=== PATIENT | male | born 1950 | race Caucasian/White ===

== ENCOUNTER 2017-04-16 22:27 | Emergency (ER) | payer MEDICARE, OTHER ==
[2017-04-16] MEDS: LORAZEPAM 2 MG INJ IM (23:12)
== END 2017-04-17 00:04 | disposition home or self-care (01) ==
LOC: E/R 04-17 00:04
DX: M79.605 Pain in left leg (principal); M79.604 Pain in right leg; F41.9 Anxiety disorder, unspecified; I10 Essential (primary) hypertension; I25.10 Atherosclerotic heart disease of native coronary artery without angina pectoris; J44.9 Chronic obstructive pulmonary disease, unspecified; Z95.1 Presence of aortocoronary bypass graft
CPT/HCPCS: 96372; 99284-25

== ENCOUNTER 2017-05-09 02:21 | Inpatient (IN) | payer MEDICARE, OTHER ==
[2017-05-09] MEDS: CEFEPIME 2GM/50 ML (PMX) 50 ML IVPB (02:47)
[2017-05-09 03:20] LABS: ABNORMAL IP MESSAGE 1; HEMATOCRIT 30.7 % (42.0-52.0); HEMOGLOBIN 10.7 g/dl (14.0-18.0); MEAN CORPUSCULAR HEMOGLOBIN 39.9 pg (29.0-33.0); MEAN CORPUSCULAR HGB CONC 34.9 g/dl (32.0-37.0); MEAN CORPUSCULAR VOLUME 114.6 fl (82.0-101.0); MEAN PLATELET VOLUME 11.6 fl (7.4-10.4); PLATELET COUNT 573 10^3/UL (140-415); POSITIVE DIFF @See below; RED BLOOD COUNT 2.68 10^6/ul (4.70-6.10); RED CELL DISTRIBUTION WIDTH 17.4 % (11.5-14.5)
[2017-05-09 03:20] LABS: WHITE BLOOD COUNT 4.7 10^3/ul (4.8-10.8)
[2017-05-09] MEDS: SODIUM CHLORIDE 0.9% 1L BAG IV* (03:26)
[2017-05-09] MEDS: ONDANSETRON 4 MG INJ IV (03:26)
[2017-05-09] MEDS: morphine 4 MG/ML VIAL IV (03:26)
[2017-05-09 03:35] LABS: ADD MAN DIFF? YES
[2017-05-09 03:38] LABS: INR 1.12; PROTIME 14.6 Sec (11.9-14.9); PT RATIO 1.1
[2017-05-09 03:39] LABS: PARTIAL THROMBOPLASTIN TIME 44.2 Sec (25.0-35.0)
[2017-05-09 03:39] LABS: LACTIC ACID 0.8 mmol/L (0.5-2.0)
[2017-05-09 03:42] LABS: ALANINE AMINOTRANSFERASE 41 IU/L (13-69); ALBUMIN/GLOBULIN RATIO 1.42; ALKALINE PHOSPHATASE 118 IU/L (42-121); ANION GAP 16 (8-16); ASPARTATE AMINO TRANSFERASE 28 IU/L (15-46); BILIRUBIN,INDIRECT 0.4 mg/dl (0-1.1); BILIRUBIN,TOTAL 0.4 mg/dl (0.2-1.3); BLOOD UREA NITROGEN 28 mg/dl (7-20); CALCIUM 8.8 mg/dl (8.4-10.2); CARBON DIOXIDE 22 mmol/L (21-31); CHLORIDE 104 mmol/L (97-110); CREATININE 1.38 mg/dl (0.61-1.24); GLUCOSE 122 mg/dl (70-220); SODIUM 137 mmol/L (135-144); TOTAL PROTEIN 6.8 g/dl (6.1-8.1)
[2017-05-09 03:53] LABS: TROPONIN-I < 0.012 ng/ml (0.00-0.12)
[2017-05-09 05:17] LABS: ANISOCYTOSIS 2+ (0-0); BAND NEUTROPHILS % (M) 2 % (0-4); BASOPHIL #M 0.1 10^3/ul (0.0-0.0); BASOPHILS % (M) 3 % (0-2); EOSINOPHILS % (M) 4 % (0-7); LYMPHOCYTES #M 0.1 10^3/ul (0.8-2.9); LYMPHOCYTES % (M) 4 % (15-51); MONOCYTES % (M) 2 % (0-11); PLATELET ESTIMATE NORMAL; POIKILOCYTOSIS 3+ (0-0); POLYCHROMASIA 3+ (0-0); SEG NEUT #M 3.9 10^3/ul (1.6-7.5); SEGMENTED NEUTROPHILS (M) % 84 % (39-77); SMUDGE%M 4 % (0-0)
[2017-05-09 05:36] LABS: ADD UMIC YES; UR ASCORBIC ACID NEGATIVE (NEGATIVE); UR BACTERIA FEW /HPF (NONE SEEN); UR BILIRUBIN (Dip) NEGATIVE (NEGATIVE); UR BLOOD (Dip) 2+ mg/dL (NEGATIVE); UR CLARITY CLOUDY (CLEAR); UR COLOR YELLOW (YELLOW); UR GLUCOSE (Dip) NEGATIVE (NEGATIVE); UR KETONES (Dip) NEGATIVE (NEGATIVE); UR LEUKOCYTE ESTERASE (Dip) 3+ Leu/ul (NEGATIVE); UR NITRITE (Dip) POSITIVE (NEGATIVE); UR RBC 2 /HPF (0-5); UR SPECIFIC GRAVITY (Dip) 1.005 (1.003-1.030); UR TOTAL PROTEIN (Dip) 1+ mg/dl (NEGATIVE); UR UROBILINOGEN (Dip) NEGATIVE (NEGATIVE); UR WBC 147 /HPF (0-5)
[2017-05-09] MEDS: VANCOMYCIN 1 GM (PMX) 250 ML IVPB (05:54)
[2017-05-09] MEDS: PANTOPRAZOLE (EC) 40 MG TAB PO (06:00)
[2017-05-09] MEDS: SOD CHLORIDE 0.9% 1,000 ML IV ×4 (06:03→22:48)
[2017-05-09] MEDS ORDERED: NACL 0.9% 3 ML SYG IV (06:30)
[2017-05-09] MEDS ORDERED: LEVALBUTEROL (NEB) 0.63 MG/3 ML AMP HHN (06:30)
[2017-05-09] MEDS ORDERED: ONDANSETRON 4 MG INJ IV (06:30)
[2017-05-09] MEDS ORDERED: morphine 2 MG INJ IV (06:30)
[2017-05-09 07:11] LABS: LACTIC ACID 0.7 mmol/L (0.5-2.0)
[2017-05-09] MEDS: HYDROCODONE/APAP (10/325) TAB PO (07:30)
[2017-05-09 08:53] LABS: LACTIC ACID 0.5 mmol/L (0.5-2.0)
[2017-05-09] MEDS: DICYCLOMINE 10 MG CAP PO ×4 (09:01→20:22)
[2017-05-09] MEDS: HEPARIN 5,000 UNIT/0.5 ML VIAL SC ×2 (09:02→20:21)
[2017-05-09] MEDS: ALLOPURINOL 100 MG TAB PO ×3 (09:25→20:22)
[2017-05-09] MEDS: METOPROLOL (XL) 25 MG TAB PO ×2 (09:26→20:29)
[2017-05-09] MEDS: HYDROXYUREA 500 MG CAP PO (09:27)
[2017-05-09] MEDS: CEFTRIAXONE 1 GM/50 ML (PMX) 50 ML IVPB ×2 (09:52→20:20)
[2017-05-09 16:13] LABS: URIC ACID 8.2 mg/dl (3.1-7.9)
[2017-05-09 16:13] LABS: LACTATE DEHYDROGENASE 722 IU/L (313-618)
[2017-05-09] MEDS: ACETAMINOPHEN 325 MG TAB PO (16:27)
[2017-05-09] MEDS: TAMSULOSIN (SR) 0.4 MG CAP PO (20:22)
[2017-05-10] MEDS: PANTOPRAZOLE (EC) 40 MG TAB PO (05:44)
[2017-05-10 05:59] LABS: ABNORMAL IP MESSAGE 1; HEMATOCRIT 26.5 % (42.0-52.0); HEMOGLOBIN 8.9 g/dl (14.0-18.0); MEAN CORPUSCULAR HGB CONC 33.6 g/dl (32.0-37.0); MEAN CORPUSCULAR VOLUME 116.2 fl (82.0-101.0); MEAN PLATELET VOLUME 11.8 fl (7.4-10.4); PLATELET COUNT 444 10^3/UL (140-415); POSITIVE DIFF @See below; RED BLOOD COUNT 2.28 10^6/ul (4.70-6.10)
[2017-05-10 05:59] LABS: WHITE BLOOD COUNT 1.7 10^3/ul (4.8-10.8)
[2017-05-10 06:15] LABS: ADD MAN DIFF? YES
[2017-05-10 06:24] LABS: PARTIAL THROMBOPLASTIN TIME 47.3 Sec (25.0-35.0)
[2017-05-10 06:59] LABS: ALANINE AMINOTRANSFERASE 33 IU/L (13-69); ALBUMIN 2.9 g/dl (3.3-4.9); ALKALINE PHOSPHATASE 120 IU/L (42-121); ANION GAP 13 (8-16); ASPARTATE AMINO TRANSFERASE 27 IU/L (15-46); BLOOD UREA NITROGEN 20 mg/dl (7-20); CALCIUM 8.6 mg/dl (8.4-10.2); CARBON DIOXIDE 20 mmol/L (21-31); CHLORIDE 109 mmol/L (97-110); CREATININE 1.22 mg/dl (0.61-1.24); GLUCOSE 98 mg/dl (70-220); MAGNESIUM 1.8 mg/dl (1.7-2.5); PHOSPHORUS 3.5 mg/dl (2.5-4.9); POTASSIUM 4.9 mmol/L (3.5-5.1); SODIUM 137 mmol/L (135-144); TOTAL PROTEIN 5.8 g/dl (6.1-8.1)
[2017-05-10 08:35] LABS: ANISOCYTOSIS 3+ (0-0); BAND NEUTROPHILS % (M) 3 % (0-4); BASOPHILS % (M) 2 % (0-2); EOSINOPHILS % (M) 1 % (0-7); GIANT THROMBO% (M) 28 % (0-0); LYMPHOCYTES #M 0.3 10^3/ul (0.8-2.9); LYMPHOCYTES % (M) 19 % (15-51); MONOCYTES % (M) 2 % (0-11); PLATELET ESTIMATE INCREASED; POIKILOCYTOSIS 1+ (0-0); POLYCHROMASIA 2+ (0-0); REACTIVE LYMPHOCYTES #M 0.1 10^3/ul (0.0-0.0); REACTIVE LYMPHOCYTES% (M) 7 % (0-0); SEG NEUT #M 1.1 10^3/ul (1.6-7.5); SEGMENTED NEUTROPHILS (M) % 66 % (39-77); SMUDGE%M 3 % (0-0)
[2017-05-10] MEDS: SOD CHLORIDE 0.9% 1,000 ML IV ×2 (08:55→12:07)
[2017-05-10 08:56] LABS: 50/50 PTT IMMED 38.8 Sec
[2017-05-10 08:57] LABS: 50/50 PTT 1 HOUR 47.1 Sec
[2017-05-10] MEDS: HEPARIN 5,000 UNIT/0.5 ML VIAL SC (09:28)
[2017-05-10] MEDS: ALLOPURINOL 100 MG TAB PO ×2 (09:32→13:46)
[2017-05-10] MEDS: FOLIC ACID 1 MG TAB PO (09:32)
[2017-05-10] MEDS: CEFTRIAXONE 1 GM/50 ML (PMX) 50 ML IVPB (09:32)
[2017-05-10] MEDS: METOPROLOL (XL) 25 MG TAB PO (09:33)
[2017-05-10] MEDS: DICYCLOMINE 10 MG CAP PO ×3 (09:34→17:58)
[2017-05-12 17:01] LABS: CARDIOLIPIN AB - IGA <11 APL; CARDIOLIPIN AB - IGG <14 GPL; CARDIOLIPIN AB - IGM <12 MPL
== END 2017-05-10 19:43 | disposition home or self-care (01) | DRG 690 ==
LOC: E/R 02:21 → PP2 05:33
DX: N13.6 Pyonephrosis (principal); R13.10 Dysphagia, unspecified; D46.9 Myelodysplastic syndrome, unspecified; D53.9 Nutritional anemia, unspecified; I25.10 Atherosclerotic heart disease of native coronary artery without angina pectoris; Z95.1 Presence of aortocoronary bypass graft; N40.0 Benign prostatic hyperplasia without lower urinary tract symptoms; Z87.442 Personal history of urinary calculi
CPT/HCPCS: 36415; 71045; 74176; 80053; 81001; 83605; 83615; 83735; 84100; 84484; 84560; 85025; 85335; 85610; 85613; 85730; 86147; 87040; 87086; 87400; 93005; 96372; 96374; 96375; 99285-25

== ENCOUNTER 2017-06-24 22:10 | Emergency (ER) | payer MEDICARE, OTHER ==
[2017-06-24] MEDS: KETOROLAC 15 MG INJ IV (23:42)
[2017-06-24] MEDS: ONDANSETRON 4 MG INJ IV (23:42)
[2017-06-24] MEDS: SOD CHLORIDE 0.9% 1,000 ML IV (23:42)
[2017-06-24 23:44] LABS: ADD MAN DIFF? NO
[2017-06-24 23:46] LABS: WHITE BLOOD COUNT 9.7 10^3/ul (4.8-10.8)
[2017-06-24 23:46] LABS: BASOPHIL # 0.1 10^3/ul (0.0-0.1); BASOPHILS % 0.6 % (0.0-2.0); EOSINOPHILS # 0.3 10^3/ul (0.0-0.5); EOSINOPHILS % 3.1 % (0.0-7.0); HEMATOCRIT 38.1 % (42.0-52.0); HEMOGLOBIN 13.1 g/dl (14.0-18.0); LYMPHOCYTES # 1.6 10^3/ul (0.8-2.9); LYMPHOCYTES % 16.6 % (15.0-51.0); MEAN CORPUSCULAR HEMOGLOBIN 38.3 pg (29.0-33.0); MEAN CORPUSCULAR HGB CONC 34.4 g/dl (32.0-37.0); MEAN CORPUSCULAR VOLUME 111.4 fl (82.0-101.0); MEAN PLATELET VOLUME 11.9 fl (7.4-10.4); MONOCYTE # 0.5 10^3/ul (0.3-0.9); MONOCYTES % 4.7 % (0.0-11.0); NEUTROPHIL # 7.2 10^3/ul (1.6-7.5); NEUTROPHILS % 74.5 % (39.0-77.0); PLATELET COUNT 650 10^3/UL (140-415); RED BLOOD COUNT 3.42 10^6/ul (4.70-6.10); RED CELL DISTRIBUTION WIDTH 14.1 % (11.5-14.5)
[2017-06-24 23:53] LABS: ADD UMIC YES; UR ASCORBIC ACID NEGATIVE (NEGATIVE); UR BACTERIA FEW /HPF (NONE SEEN); UR BILIRUBIN (Dip) NEGATIVE (NEGATIVE); UR BLOOD (Dip) 1+ mg/dL (NEGATIVE); UR CLARITY CLEAR (CLEAR); UR COLOR STRAW (YELLOW); UR GLUCOSE (Dip) NEGATIVE (NEGATIVE); UR KETONES (Dip) NEGATIVE (NEGATIVE); UR LEUKOCYTE ESTERASE (Dip) 2+ Leu/ul (NEGATIVE); UR NITRITE (Dip) NEGATIVE (NEGATIVE); UR RBC 3 /HPF (0-5); UR SPECIFIC GRAVITY (Dip) 1.003 (1.003-1.030); UR TOTAL PROTEIN (Dip) NEGATIVE (NEGATIVE); UR UROBILINOGEN (Dip) NEGATIVE (NEGATIVE); UR WBC 12 /HPF (0-5)
[2017-06-25 00:06] LABS: ALBUMIN/GLOBULIN RATIO 1.76; ANION GAP 17 (8-16)
[2017-06-25 00:08] LABS: ALANINE AMINOTRANSFERASE 17 IU/L (13-69); ALBUMIN 4.4 g/dl (3.3-4.9); ALKALINE PHOSPHATASE 57 IU/L (42-121); ASPARTATE AMINO TRANSFERASE 21 IU/L (15-46); BILIRUBIN,INDIRECT 0.1 mg/dl (0-1.1); BILIRUBIN,TOTAL 0.1 mg/dl (0.2-1.3); BLOOD UREA NITROGEN 21 mg/dl (7-20); CALCIUM 8.9 mg/dl (8.4-10.2); CARBON DIOXIDE 25 mmol/L (21-31); CHLORIDE 102 mmol/L (97-110); CREATININE 1.11 mg/dl (0.61-1.24); GLUCOSE 84 mg/dl (70-220); LIPASE 43 U/L (23-300); POTASSIUM 4.5 mmol/L (3.5-5.1); SODIUM 139 mmol/L (135-144); TOTAL PROTEIN 6.9 g/dl (6.1-8.1)
[2017-06-25 00:35] LABS: TROPONIN-I < 0.012 ng/ml (0.00-0.12)
[2017-06-25] MEDS: CEFTRIAXONE 1 GM/50 ML (PMX) 50 ML IVPB (03:18)
== END 2017-06-25 04:45 | disposition home or self-care (01) ==
LOC: E/R 06-25 04:45
DX: N39.0 Urinary tract infection, site not specified (principal); Z95.1 Presence of aortocoronary bypass graft
CPT/HCPCS: 36415; 74019; 80053; 81001; 83690; 84484; 85025; 93005; 96374; 96375; 99285-25

== ENCOUNTER 2017-07-09 14:31 | Emergency (ER) | payer MEDICARE, OTHER ==
[2017-07-09] MEDS: ONDANSETRON 4 MG INJ IV (14:47)
[2017-07-09] MEDS: SOD CHLORIDE 0.9% 1,000 ML IV (14:47)
[2017-07-09 15:31] LABS: ABNORMAL IP MESSAGE 1; HEMOGLOBIN 13.5 g/dl (14.0-18.0); MEAN CORPUSCULAR HEMOGLOBIN 36.2 pg (29.0-33.0); MEAN CORPUSCULAR HGB CONC 32.9 g/dl (32.0-37.0); MEAN CORPUSCULAR VOLUME 109.9 fl (82.0-101.0); MEAN PLATELET VOLUME 11.8 fl (7.4-10.4); PLATELET COUNT 830 10^3/UL (140-415); POSITIVE DIFF @See below; RED BLOOD COUNT 3.73 10^6/ul (4.70-6.10); RED CELL DISTRIBUTION WIDTH 16.7 % (11.5-14.5)
[2017-07-09 15:31] LABS: WHITE BLOOD COUNT 10.7 10^3/ul (4.8-10.8)
[2017-07-09 15:51] LABS: ANION GAP 21 (8-16); BLOOD UREA NITROGEN 20 mg/dl (7-20); CALCIUM 9.4 mg/dl (8.4-10.2); CARBON DIOXIDE 21 mmol/L (21-31); CHLORIDE 107 mmol/L (97-110); CREATININE 1.16 mg/dl (0.61-1.24); GLUCOSE 91 mg/dl (70-220); POTASSIUM 4.4 mmol/L (3.5-5.1); SODIUM 145 mmol/L (135-144)
[2017-07-09 15:56] LABS: ADD MAN DIFF? YES
[2017-07-09 16:10] LABS: ANISOCYTOSIS 2+ (0-0); GIANT THROMBO% (M) 51 % (0-0); LYMPHOCYTES #M 1.6 10^3/ul (0.8-2.9); LYMPHOCYTES % (M) 15 % (15-51); MONOCYTE #M 0.4 10^3/ul (0.3-0.9); MONOCYTES % (M) 4 % (0-11); PLATELET ESTIMATE INCREASED; PLATELET MORPHOLOGY COMMENT @See below; POIKILOCYTOSIS 3+ (0-0); POLYCHROMASIA 1+ (0-0); REACTIVE LYMPHOCYTES #M 0.4 10^3/ul (0.0-0.0); REACTIVE LYMPHOCYTES% (M) 4 % (0-0); SEGMENTED NEUTROPHILS (M) % 77 % (39-77); SMUDGE%M 6 % (0-0)
== END 2017-07-09 16:54 | disposition home or self-care (01) ==
LOC: E/R 14:31
DX: A04.72 Enterocolitis due to Clostridium difficile, not specified as recurrent (principal); R19.7 Diarrhea, unspecified; Z95.1 Presence of aortocoronary bypass graft
CPT/HCPCS: 36415; 80048; 85025; 99284-25

== ENCOUNTER 2017-07-14 15:59 | Emergency (ER) | payer MEDICARE, OTHER ==
[2017-07-14 16:24] LABS: ADD MAN DIFF? NO
[2017-07-14 16:27] LABS: BASOPHIL # 0.1 10^3/ul (0.0-0.1); BASOPHILS % 0.7 % (0.0-2.0); EOSINOPHILS # 0.3 10^3/ul (0.0-0.5); EOSINOPHILS % 3.7 % (0.0-7.0); HEMATOCRIT 38.9 % (42.0-52.0); LYMPHOCYTES # 1.5 10^3/ul (0.8-2.9); LYMPHOCYTES % 20.8 % (15.0-51.0); MEAN CORPUSCULAR HEMOGLOBIN 37.2 pg (29.0-33.0); MEAN CORPUSCULAR HGB CONC 33.4 g/dl (32.0-37.0); MEAN CORPUSCULAR VOLUME 111.5 fl (82.0-101.0); MEAN PLATELET VOLUME 11.3 fl (7.4-10.4); MONOCYTE # 0.4 10^3/ul (0.3-0.9); MONOCYTES % 5.2 % (0.0-11.0); NEUTROPHIL # 4.8 10^3/ul (1.6-7.5); NEUTROPHILS % 68.6 % (39.0-77.0); RED BLOOD COUNT 3.49 10^6/ul (4.70-6.10); RED CELL DISTRIBUTION WIDTH 14.4 % (11.5-14.5)
[2017-07-14 16:27] LABS: WHITE BLOOD COUNT 7.1 10^3/ul (4.8-10.8)
[2017-07-14] MEDS: SOD CHLORIDE 0.9% 1,000 ML IV (16:39)
[2017-07-14 16:45] LABS: ANION GAP 16 (8-16); BLOOD UREA NITROGEN 14 mg/dl (7-20); CALCIUM 8.8 mg/dl (8.4-10.2); CARBON DIOXIDE 25 mmol/L (21-31); CHLORIDE 104 mmol/L (97-110); CREATININE 0.94 mg/dl (0.61-1.24); GLUCOSE 91 mg/dl (70-220); POTASSIUM 4.3 mmol/L (3.5-5.1); SODIUM 141 mmol/L (135-144)
[2017-07-14 17:06] LABS: TROPONIN-I < 0.012 ng/ml (0.00-0.12)
[2017-07-14 17:41] LABS: PLATELET COUNT 951 10^3/UL (140-415)
[2017-07-14 18:34] LABS: URINE BLOOD (Dip) POC 2+ (NEGATIVE); URINE GLUCOSE (Dip) POC Negative (NEGATIVE); URINE KETONES (Dip) POC Negative (NEGATIVE); URINE LEUKOCYTE EST (Dip) POC Trace (NEGATIVE); URINE NITRITE (Dip) POC Negative (NEGATIVE); URINE TOTAL PROTEIN POC Negative (NEGATIVE)
[2017-07-14 18:34] LABS: URINE PH (Dip) POC 5.5 (5.0-8.5)
== END 2017-07-14 19:40 | disposition home or self-care (01) ==
LOC: E/R 15:59
DX: R53.1 Weakness (principal); R40.2252 Coma scale, best verbal response, oriented, at arrival to emergency department; R40.2142 Coma scale, eyes open, spontaneous, at arrival to emergency department; R40.2362 Coma scale, best motor response, obeys commands, at arrival to emergency department; Z95.1 Presence of aortocoronary bypass graft
CPT/HCPCS: 36415; 71045; 80048; 81003; 84484; 85025; 93005; 99285-25

== ENCOUNTER 2017-07-24 23:40 | Emergency (ER) | payer SELFPAY, OTHER, MEDICARE | END 2017-07-25 03:49 | disposition left against medical advice (07) | LOC: E/R 23:40 | DX: Z53.21 Procedure and treatment not carried out due to patient leaving prior to being seen by health care provider (principal) ==

== ENCOUNTER 2017-12-14 11:23 | Inpatient (IN) | payer MEDICARE, OTHER ==
[2017-12-14] MEDS: ONDANSETRON 4 MG INJ IV ×2 (11:35→11:42)
[2017-12-14] MEDS: morphine 4 MG/ML VIAL IV ×2 (11:36→11:42)
[2017-12-14] MEDS: SOD CHLORIDE 0.9% 1,000 ML IV ×2 (11:36→18:46)
[2017-12-14 11:50] LABS: ADD MAN DIFF? NO
[2017-12-14 11:51] LABS: BASOPHILS % 0.6 % (0.0-2.0); EOSINOPHILS # 0.1 10^3/ul (0.0-0.5); EOSINOPHILS % 0.7 % (0.0-7.0); HEMATOCRIT 24.8 % (42.0-52.0); HEMOGLOBIN 8.2 g/dl (14.0-18.0); LYMPHOCYTES # 1.9 10^3/ul (0.8-2.9); LYMPHOCYTES % 27.8 % (15.0-51.0); MEAN CORPUSCULAR HEMOGLOBIN 32.5 pg (29.0-33.0); MEAN CORPUSCULAR HGB CONC 33.1 g/dl (32.0-37.0); MEAN CORPUSCULAR VOLUME 98.4 fl (82.0-101.0); MEAN PLATELET VOLUME 11.2 fl (7.4-10.4); MONOCYTE # 0.5 10^3/ul (0.3-0.9); MONOCYTES % 7.3 % (0.0-11.0); NEUTROPHIL # 4.2 10^3/ul (1.6-7.5); NUCLEATED RED BLOOD CELLS # 0.1 10^3/ul (0.0-0.0); NUCLEATED RED BLOOD CELLS% 0.9 /100WBC (0.0-0.0); PLATELET COUNT 176 10^3/UL (140-415); RED BLOOD COUNT 2.52 10^6/ul (4.70-6.10); RED CELL DISTRIBUTION WIDTH 15.4 % (11.5-14.5)
[2017-12-14 12:13] LABS: ALANINE AMINOTRANSFERASE 43 IU/L (13-69); ALBUMIN 3.6 g/dl (3.3-4.9); ALBUMIN/GLOBULIN RATIO 1.24; ALKALINE PHOSPHATASE 76 IU/L (42-121); ANION GAP 15 (8-16); ASPARTATE AMINO TRANSFERASE 31 IU/L (15-46); BILIRUBIN,INDIRECT 0.4 mg/dl (0-1.1); BILIRUBIN,TOTAL 0.4 mg/dl (0.2-1.3); BLOOD UREA NITROGEN 18 mg/dl (7-20); CALCIUM 9.1 mg/dl (8.4-10.2); CARBON DIOXIDE 27 mmol/L (21-31); CHLORIDE 100 mmol/L (97-110); GLUCOSE 97 mg/dl (70-220); LIPASE 38 U/L (23-300); POTASSIUM 4.8 mmol/L (3.5-5.1); SODIUM 137 mmol/L (135-144); TOTAL PROTEIN 6.5 g/dl (6.1-8.1)
[2017-12-14 13:01] LABS: ADD UMIC NO; UR ASCORBIC ACID NEGATIVE (NEGATIVE); UR BILIRUBIN (Dip) NEGATIVE (NEGATIVE); UR BLOOD (Dip) NEGATIVE (NEGATIVE); UR CLARITY CLEAR (CLEAR); UR COLOR STRAW (YELLOW); UR GLUCOSE (Dip) NEGATIVE (NEGATIVE); UR KETONES (Dip) NEGATIVE (NEGATIVE); UR LEUKOCYTE ESTERASE (Dip) NEGATIVE Leu/ul (NEGATIVE); UR NITRITE (Dip) NEGATIVE (NEGATIVE); UR SPECIFIC GRAVITY (Dip) 1.005 (1.003-1.030); UR TOTAL PROTEIN (Dip) NEGATIVE (NEGATIVE); UR UROBILINOGEN (Dip) NEGATIVE (NEGATIVE)
[2017-12-14] MEDS: IODIXANOL LOCM 100 ML BTL (14:45)
[2017-12-14] MEDS: SOD CHLORIDE 0.9% 100 ML (14:45)
[2017-12-14] MEDS: ENOXAPARIN 80 MG/0.8 ML SYG SC (16:48)
[2017-12-14] MEDS ORDERED: LORAZEPAM 2 MG INJ IV (19:00)
[2017-12-14] MEDS ORDERED: ONDANSETRON 4 MG INJ IV ×2 (19:00)
[2017-12-14] MEDS ORDERED: HYDROCODONE PO (19:00)
[2017-12-14] MEDS ORDERED: NA PHOSPHATE/BIPHOS 133 ML ENEMA PR (19:00)
[2017-12-14] MEDS ORDERED: NITROGLYCERIN (SL) 0.4 MG TAB SL (19:00)
[2017-12-14] MEDS ORDERED: hydrALAzine 20 MG INJ IV (19:00)
[2017-12-14] MEDS ORDERED: ACETAMINOPHEN PO (19:00)
[2017-12-14] MEDS ORDERED: ACETAMINOPHEN 325 MG TAB PO ×2 (19:00)
[2017-12-14] MEDS ORDERED: NACL 0.9% 3 ML SYG IV (19:00)
[2017-12-14] MEDS ORDERED: morphine 2 MG INJ IV (19:00)
[2017-12-14] MEDS ORDERED: ALBUTEROL/IPRATROPIUM (NEB) 3 ML AMP HHN (19:00)
[2017-12-14 19:07] LABS: INR 0.99; PROTIME 13.2 Sec (11.9-14.9)
[2017-12-14 19:27] LABS: FREE T4 (FREE THYROXINE) 0.91 ng/dl (0.78-2.44)
[2017-12-14] MEDS ORDERED: SOD CHLORIDE 0.45% 1,000 ML IV (21:00)
[2017-12-14] MEDS: FAMOTIDINE 20 MG INJ IV (23:42)
[2017-12-14] MEDS: ALLOPURINOL 100 MG TAB PO (23:42)
[2017-12-14] MEDS: METOPROLOL (XL) 25 MG TAB PO (23:42)
[2017-12-14] MEDS: TAMSULOSIN (SR) 0.4 MG CAP PO (23:42)
[2017-12-14] MEDS: DICYCLOMINE 10 MG CAP PO (23:43)
[2017-12-14] MEDS: DEXTROSE 5%-0.45% NACL 1,000 ML IV (23:43)
[2017-12-15] MEDS: ENOXAPARIN 80 MG/0.8 ML SYG SC ×3 (01:26→20:17)
[2017-12-15 07:04] LABS: ADD MAN DIFF? NO
[2017-12-15 07:09] LABS: BASOPHILS % 0.7 % (0.0-2.0); EOSINOPHILS % 0.7 % (0.0-7.0); HEMATOCRIT 23.4 % (42.0-52.0); HEMOGLOBIN 7.5 g/dl (14.0-18.0); LYMPHOCYTES # 1.8 10^3/ul (0.8-2.9); LYMPHOCYTES % 30.7 % (15.0-51.0); MEAN CORPUSCULAR HEMOGLOBIN 32.1 pg (29.0-33.0); MEAN CORPUSCULAR HGB CONC 32.1 g/dl (32.0-37.0); MONOCYTE # 0.4 10^3/ul (0.3-0.9); MONOCYTES % 7.3 % (0.0-11.0); NEUTROPHIL # 3.4 10^3/ul (1.6-7.5); NEUTROPHILS % 56.7 % (39.0-77.0); NUCLEATED RED BLOOD CELLS # 0.1 10^3/ul (0.0-0.0); PLATELET COUNT 159 10^3/UL (140-415); RED BLOOD COUNT 2.34 10^6/ul (4.70-6.10); RED CELL DISTRIBUTION WIDTH 15.5 % (11.5-14.5)
[2017-12-15 07:09] LABS: WHITE BLOOD COUNT 5.9 10^3/ul (4.8-10.8)
[2017-12-15 07:48] LABS: CHOLESTEROL 156 mg/dl (100-200)
[2017-12-15 07:48] LABS: CHOL/HDL RATIO 5.2 RATIO; HDL CHOLESTEROL 30 mg/dl (31-75); LDL CHOLESTEROL,CALCULATED 104 mg/dl; TRIGLYCERIDES 112 mg/dl (0-149)
[2017-12-15 07:52] LABS: ANION GAP 13 (8-16); BLOOD UREA NITROGEN 18 mg/dl (7-20); CALCIUM 8.9 mg/dl (8.4-10.2); CARBON DIOXIDE 29 mmol/L (21-31); CHLORIDE 105 mmol/L (97-110); CREATININE 1.23 mg/dl (0.61-1.24); GLUCOSE 88 mg/dl (70-220); MAGNESIUM 2.2 mg/dl (1.7-2.5); PHOSPHORUS 4.8 mg/dl (2.5-4.9); POTASSIUM 4.8 mmol/L (3.5-5.1); SODIUM 142 mmol/L (135-144)
[2017-12-15] MEDS ORDERED: [UNRECOGNIZED DRUG - REMARK] XX (08:30)
[2017-12-15] MEDS: FAMOTIDINE 20 MG INJ IV ×2 (10:02→20:15)
[2017-12-15] MEDS: METOPROLOL (XL) 25 MG TAB PO ×2 (10:02→20:15)
[2017-12-15] MEDS: ALLOPURINOL 100 MG TAB PO ×3 (10:02→20:15)
[2017-12-15] MEDS: DICYCLOMINE 10 MG CAP PO ×4 (10:02→20:15)
[2017-12-15] MEDS ORDERED: RUXOLITINIB PHOSPHATE 20 MG PO (12:30)
[2017-12-15] MEDS: DEXTROSE 5%-0.45% NACL 1,000 ML IV (13:17)
[2017-12-15] MEDS ORDERED: JAKAFI 20 MG PO ×3 (14:30→16:00)
[2017-12-15] MEDS: TAMSULOSIN (SR) 0.4 MG CAP PO (20:15)
[2017-12-15] MEDS: JAKAFI 20 MG PO (20:16)
[2017-12-15] MEDS: HYDROCODONE/APAP (5/325) TAB PO (22:55)
[2017-12-16] MEDS: DEXTROSE 5%-0.45% NACL 1,000 ML IV (02:10)
[2017-12-16] MEDS: FAMOTIDINE 20 MG INJ IV ×2 (08:04→20:07)
[2017-12-16] MEDS: METOPROLOL (XL) 25 MG TAB PO ×2 (08:06→20:07)
[2017-12-16] MEDS: JAKAFI 20 MG PO ×2 (08:06→20:09)
[2017-12-16] MEDS: DICYCLOMINE 10 MG CAP PO ×4 (08:07→20:06)
[2017-12-16] MEDS: ALLOPURINOL 100 MG TAB PO ×3 (08:07→20:06)
[2017-12-16] MEDS: ENOXAPARIN 80 MG/0.8 ML SYG SC ×2 (08:09→20:09)
[2017-12-16 08:12] LABS: ADD MAN DIFF? NO
[2017-12-16 08:29] LABS: WHITE BLOOD COUNT 5.7 10^3/ul (4.8-10.8)
[2017-12-16 08:29] LABS: BASOPHILS % 0.3 % (0.0-2.0); EOSINOPHILS # 0.1 10^3/ul (0.0-0.5); EOSINOPHILS % 0.9 % (0.0-7.0); HEMATOCRIT 21.4 % (42.0-52.0); LYMPHOCYTES # 1.5 10^3/ul (0.8-2.9); LYMPHOCYTES % 26.8 % (15.0-51.0); MEAN CORPUSCULAR HEMOGLOBIN 32.7 pg (29.0-33.0); MEAN CORPUSCULAR HGB CONC 32.7 g/dl (32.0-37.0); MEAN PLATELET VOLUME 10.1 fl (7.4-10.4); MONOCYTE # 0.4 10^3/ul (0.3-0.9); MONOCYTES % 7.5 % (0.0-11.0); NEUTROPHIL # 3.5 10^3/ul (1.6-7.5); NEUTROPHILS % 60.1 % (39.0-77.0); NUCLEATED RED BLOOD CELLS # 0.1 10^3/ul (0.0-0.0); PLATELET COUNT 147 10^3/UL (140-415); RED BLOOD COUNT 2.14 10^6/ul (4.70-6.10); RED CELL DISTRIBUTION WIDTH 15.5 % (11.5-14.5)
[2017-12-16 08:57] LABS: ANION GAP 13 (8-16); BLOOD UREA NITROGEN 18 mg/dl (7-20); CALCIUM 8.8 mg/dl (8.4-10.2); CARBON DIOXIDE 27 mmol/L (21-31); CHLORIDE 106 mmol/L (97-110); CREATININE 1.33 mg/dl (0.61-1.24); GLUCOSE 88 mg/dl (70-220); POTASSIUM 4.5 mmol/L (3.5-5.1); SODIUM 141 mmol/L (135-144)
[2017-12-16] MEDS: EPOETIN 10000 UNITS/ML VIAL (ONCOLOGY) SC (11:31)
[2017-12-16] MEDS: FOLIC ACID 1 MG TAB PO (12:31)
[2017-12-16 12:59] LABS: FOLATE > 20.0 ng/ml (2.8-20.0)
[2017-12-16 17:06] LABS: IMMEDIATE SPIN CROSSMATCH 1 3
[2017-12-16] MEDS: HYDROCODONE/APAP (5/325) TAB PO (18:32)
[2017-12-16] MEDS: TAMSULOSIN (SR) 0.4 MG CAP PO (20:06)
[2017-12-16] MEDS: SOD CHLORIDE 0.45% 1,000 ML IV (20:39)
[2017-12-17] MEDS: SOD CHLORIDE 0.45% 1,000 ML IV ×2 (01:20→13:25)
[2017-12-17 06:59] LABS: HEMATOCRIT 25.2 % (42.0-52.0); HEMOGLOBIN 8.3 g/dl (14.0-18.0); MEAN CORPUSCULAR HGB CONC 32.9 g/dl (32.0-37.0); MEAN CORPUSCULAR VOLUME 97.3 fl (82.0-101.0); MEAN PLATELET VOLUME 10.8 fl (7.4-10.4); NUCLEATED RED BLOOD CELLS% 1.3 /100WBC (0.0-0.0); PLATELET COUNT 150 10^3/UL (140-415); POSITIVE DIFF @See below; RED BLOOD COUNT 2.59 10^6/ul (4.70-6.10); RED CELL DISTRIBUTION WIDTH 15.5 % (11.5-14.5)
[2017-12-17 06:59] LABS: WHITE BLOOD COUNT 5.6 10^3/ul (4.8-10.8)
[2017-12-17 07:18] LABS: ADD MAN DIFF? YES
[2017-12-17 07:22] LABS: ANION GAP 13 (8-16); BLOOD UREA NITROGEN 17 mg/dl (7-20); CALCIUM 8.7 mg/dl (8.4-10.2); CARBON DIOXIDE 26 mmol/L (21-31); CHLORIDE 107 mmol/L (97-110); CREATININE 1.24 mg/dl (0.61-1.24); GLUCOSE 79 mg/dl (70-220); POTASSIUM 4.1 mmol/L (3.5-5.1); SODIUM 142 mmol/L (135-144)
[2017-12-17] MEDS: JAKAFI 20 MG PO ×2 (08:04→20:18)
[2017-12-17] MEDS: FOLIC ACID 1 MG TAB PO (09:00)
[2017-12-17] MEDS: FAMOTIDINE 20 MG INJ IV ×2 (09:00→20:12)
[2017-12-17] MEDS: ALLOPURINOL 100 MG TAB PO ×3 (09:00→20:11)
[2017-12-17] MEDS: DICYCLOMINE 10 MG CAP PO ×4 (09:00→20:11)
[2017-12-17] MEDS: MAGNESIUM HYDROXIDE 30ML CUP PO (09:01)
[2017-12-17] MEDS: METOPROLOL (XL) 25 MG TAB PO ×2 (09:01→20:12)
[2017-12-17] MEDS: DOCUSATE SODIUM 100 MG CAP PO (09:01)
[2017-12-17] MEDS: ENOXAPARIN 80 MG/0.8 ML SYG SC (09:14)
[2017-12-17 10:30] LABS: ANISOCYTOSIS 1+ (0-0); BAND NEUTROPHILS #M 0.3 10^3/ul (0.0-0.6); BAND NEUTROPHILS % (M) 7 % (0-4); ERYTHROBLAST% (NRBC) (M) 1 % (0-0); GIANT THROMBO% (M) 1 % (0-0); LYMPHOCYTES #M 1.7 10^3/ul (0.8-2.9); LYMPHOCYTES % (M) 31 % (15-51); METAMYELOCYTES %M 1 % (0-0); MICROCYTOSIS 1+ (0-0); MONOCYTE #M 0.2 10^3/ul (0.3-0.9); MONOCYTES % (M) 4 % (0-11); MYELOCYTES % (M) 1 % (0-0); PLATELET ESTIMATE NORMAL; POIKILOCYTOSIS 3+ (0-0); SEG NEUT #M 3.2 10^3/ul (1.6-7.5); SEGMENTED NEUTROPHILS (M) % 56 % (39-77); SMUDGE%M 6 % (0-0)
[2017-12-17 14:06] LABS: OCCULT BLOOD STOOL NEGATIVE (NEGATIVE)
[2017-12-17] MEDS: TAMSULOSIN (SR) 0.4 MG CAP PO (20:11)
[2017-12-17] MEDS: APIXABAN 5 MG TABLET PO (20:11)
[2017-12-18] MEDS: SOD CHLORIDE 0.45% 1,000 ML IV (04:00)
[2017-12-18 05:51] LABS: DRVVT CONFIRMATION NEGATIVE (NEGATIVE); HEXAGONAL PHASE CONFIRMATION NEGATIVE (NEGATIVE)
[2017-12-18 06:13] LABS: ADD MAN DIFF? NO
[2017-12-18 06:28] LABS: ABNORMAL IP MESSAGE 1; BASOPHIL # 0.1 10^3/ul (0.0-0.1); BASOPHILS % 0.8 % (0.0-2.0); EOSINOPHILS # 0.1 10^3/ul (0.0-0.5); HEMATOCRIT 26.4 % (42.0-52.0); HEMOGLOBIN 8.6 g/dl (14.0-18.0); LYMPHOCYTES # 1.5 10^3/ul (0.8-2.9); LYMPHOCYTES % 24.3 % (15.0-51.0); MEAN CORPUSCULAR HEMOGLOBIN 32.1 pg (29.0-33.0); MEAN CORPUSCULAR HGB CONC 32.6 g/dl (32.0-37.0); MEAN CORPUSCULAR VOLUME 98.5 fl (82.0-101.0); MEAN PLATELET VOLUME 10.9 fl (7.4-10.4); MONOCYTE # 0.5 10^3/ul (0.3-0.9); MONOCYTES % 7.3 % (0.0-11.0); NEUTROPHIL # 3.8 10^3/ul (1.6-7.5); NEUTROPHILS % 60.9 % (39.0-77.0); NUCLEATED RED BLOOD CELLS # 0.1 10^3/ul (0.0-0.0); PLATELET COUNT 164 10^3/UL (140-415); POSITIVE DIFF @See below; RED BLOOD COUNT 2.68 10^6/ul (4.70-6.10); RED CELL DISTRIBUTION WIDTH 15.6 % (11.5-14.5)
[2017-12-18 06:28] LABS: WHITE BLOOD COUNT 6.3 10^3/ul (4.8-10.8)
[2017-12-18 06:50] LABS: ANION GAP 12 (8-16); BLOOD UREA NITROGEN 17 mg/dl (7-20); CARBON DIOXIDE 26 mmol/L (21-31); CHLORIDE 108 mmol/L (97-110); CREATININE 1.22 mg/dl (0.61-1.24); GLUCOSE 91 mg/dl (70-220); POTASSIUM 4.4 mmol/L (3.5-5.1); SODIUM 142 mmol/L (135-144)
[2017-12-18] MEDS: APIXABAN 5 MG TABLET PO (08:11)
[2017-12-18] MEDS: ALLOPURINOL 100 MG TAB PO (08:12)
[2017-12-18] MEDS: FOLIC ACID 1 MG TAB PO (08:12)
[2017-12-18] MEDS: DICYCLOMINE 10 MG CAP PO (08:12)
[2017-12-18] MEDS: METOPROLOL (XL) 25 MG TAB PO (08:14)
[2017-12-18] MEDS: JAKAFI 20 MG PO (08:16)
[2017-12-18] MEDS: FAMOTIDINE 20 MG INJ IV (09:20)
[2017-12-18 09:51] LABS: ANISOCYTOSIS 1+ (0-0); BAND NEUTROPHILS #M 0.2 10^3/ul (0.0-0.6); BAND NEUTROPHILS % (M) 4 % (0-4); ELLIPTO 1+ (0-0); EOSINOPHILS % (M) 3 % (0-7); ERYTHROBLAST% (NRBC) (M) 2 % (0-0); LYMPHOCYTES #M 1.6 10^3/ul (0.8-2.9); LYMPHOCYTES % (M) 26 % (15-51); METAMYELOCYTES %M 1 % (0-0); MICROCYTOSIS 1+ (0-0); PLATELET ESTIMATE NORMAL; SEG NEUT #M 4.2 10^3/ul (1.6-7.5); SEGMENTED NEUTROPHILS (M) % 66 % (39-77); SMUDGE%M 13 % (0-0); SPHEROCYTES 1+ (0-0)
[2017-12-18] MEDS ORDERED: EPOETIN 10000 UNITS/ML VIAL (ONCOLOGY) SC (17:00)
[2017-12-18 17:56] LABS: HOMOCYSTEINE - CARDIOVASCULAR 15.1 umol/L (<11.4)
[2017-12-18 23:57] LABS: ERYTHROPOIETIN 97.7 mIU/mL (2.6-18.5)
[2017-12-22] MEDS ORDERED: APIXABAN 5 MG TABLET PO (21:00)
== END 2017-12-18 12:30 | disposition home or self-care (01) | DRG 442 ==
LOC: E/R 11:23 → TEL 18:48
PROC: 30233N1 Transfusion of Nonautologous Red Blood Cells into Peripheral Vein, Percutaneous Approach (ICD-10-PCS; principal; 2017-12-16)
DX: I81 Portal vein thrombosis (principal); K76.6 Portal hypertension; D47.1 Chronic myeloproliferative disease; Z95.1 Presence of aortocoronary bypass graft; I10 Essential (primary) hypertension; D64.9 Anemia, unspecified; R16.1 Splenomegaly, not elsewhere classified; K59.00 Constipation, unspecified
CPT/HCPCS: 36415; 36430; 74176; 74177; 80048; 80053; 80061; 81003; 81240; 82270; 82607; 82668; 82746; 83036; 83090; 83690; 83735; 83890; 84100; 84439; 84443; 85025; 85300; 85302; 85305; 85610; 85613; 85730; 86147; 86850; 86900; 86901; 86920; 96360; 96361; 96372; 97162; 97166; 99285-25; J0885

== ENCOUNTER 2018-06-30 15:32 | Emergency (ER) | payer MEDICARE, OTHER ==
[2018-06-30 16:02] LABS: ABNORMAL IP MESSAGE 1; HEMATOCRIT 37.6 % (42.0-52.0); HEMOGLOBIN 11.6 g/dl (14.0-18.0); MEAN CORPUSCULAR HEMOGLOBIN 29.9 pg (29.0-33.0); MEAN CORPUSCULAR HGB CONC 30.9 g/dl (32.0-37.0); MEAN CORPUSCULAR VOLUME 96.9 fl (82.0-101.0); MEAN PLATELET VOLUME 11.5 fl (7.4-10.4); NUCLEATED RED BLOOD CELLS% 1.7 /100WBC (0.0-0.0); PLATELET COUNT 274 10^3/UL (140-415); POSITIVE DIFF @See below; RED BLOOD COUNT 3.88 10^6/ul (4.70-6.10)
[2018-06-30 16:02] LABS: WHITE BLOOD COUNT 12.1 10^3/ul (4.8-10.8)
[2018-06-30 16:17] LABS: ADD MAN DIFF? YES
[2018-06-30 16:19] LABS: ALANINE AMINOTRANSFERASE 18 IU/L (13-69); ALBUMIN 4.4 g/dl (3.3-4.9); ALBUMIN/GLOBULIN RATIO 1.62; ALKALINE PHOSPHATASE 81 IU/L (42-121); ANION GAP 9 (5-13); ASPARTATE AMINO TRANSFERASE 25 IU/L (15-46); BILIRUBIN,INDIRECT 0.6 mg/dl (0-1.1); BILIRUBIN,TOTAL 0.6 mg/dl (0.2-1.3); BLOOD UREA NITROGEN 13 mg/dl (7-20); CARBON DIOXIDE 26 mmol/L (21-31); CHLORIDE 100 mmol/L (97-110); CREATININE 1.07 mg/dl (0.61-1.24); Estimated GFR > 60 mL/min (>60); GLUCOSE 87 mg/dl (70-220); LIPASE 22 U/L (23-300); POTASSIUM 4.6 mmol/L (3.5-5.1); SODIUM 135 mmol/L (135-144); TOTAL PROTEIN 7.1 g/dl (6.1-8.1)
[2018-06-30 16:31] LABS: TROPONIN-I < 0.012 ng/ml (0.000-0.120)
[2018-06-30] MEDS: SOD CHLORIDE 0.9% 1,000 ML IV (16:35)
[2018-06-30 16:44] LABS: ANISOCYTOSIS 2+ (0-0); BAND NEUTROPHILS #M 0.2 10^3/ul (0.0-0.6); BAND NEUTROPHILS % (M) 2 % (0-4); BASOPHIL #M 0.2 10^3/ul (0.0-0.0); BASOPHILS % (M) 2 % (0-2); EOSINOPHILS % (M) 1 % (0-7); ERYTHROBLAST% (NRBC) (M) 3 % (0-0); LYMPHOCYTES #M 1.3 10^3/ul (0.8-2.9); LYMPHOCYTES % (M) 11 % (15-51); METAMYELOCYTES #M 0.3 10^3/ul (0.0-0.0); METAMYELOCYTES %M 3 % (0-0); MICROCYTOSIS 2+ (0-0); MONOCYTE #M 0.4 10^3/ul (0.3-0.9); MONOCYTES % (M) 4 % (0-11); PLATELET ESTIMATE NORMAL; POIKILOCYTOSIS 3+ (0-0); POLYCHROMASIA 3+ (0-0); SEG NEUT #M 9.3 10^3/ul (1.6-7.5); SEGMENTED NEUTROPHILS (M) % 77 % (39-77); SMUDGE%M 3 % (0-0)
[2018-06-30 18:14] LABS: ADD UMIC YES; UR ASCORBIC ACID NEGATIVE (NEGATIVE); UR BILIRUBIN (Dip) NEGATIVE (NEGATIVE); UR BLOOD (Dip) 1+ mg/dL (NEGATIVE); UR CLARITY CLEAR (CLEAR); UR COLOR YELLOW (YELLOW); UR GLUCOSE (Dip) NEGATIVE (NEGATIVE); UR KETONES (Dip) NEGATIVE (NEGATIVE); UR LEUKOCYTE ESTERASE (Dip) NEGATIVE Leu/ul (NEGATIVE); UR NITRITE (Dip) NEGATIVE (NEGATIVE); UR RBC 2 /HPF (0-5); UR SPECIFIC GRAVITY (Dip) 1.008 (1.003-1.030); UR TOTAL PROTEIN (Dip) NEGATIVE (NEGATIVE); UR UROBILINOGEN (Dip) 1+ mg/dL (NEGATIVE); UR WBC 2 /HPF (0-5)
== END 2018-06-30 19:45 | disposition home or self-care (01) ==
LOC: E/R 15:32
DX: R53.1 Weakness (principal); I25.10 Atherosclerotic heart disease of native coronary artery without angina pectoris; Z79.01 Long term (current) use of anticoagulants; Z95.1 Presence of aortocoronary bypass graft
CPT/HCPCS: 36415; 80053; 81001; 83690; 84484; 85025; 93005; 99284-25

== ENCOUNTER 2018-07-20 21:49 | Emergency (ER) | payer MEDICARE, OTHER ==
[2018-07-20 23:54] LABS: ADD MAN DIFF? NO
[2018-07-20] MEDS: KETOROLAC 15 MG INJ IV (23:56)
[2018-07-20] MEDS: SOD CHLORIDE 0.9% 1,000 ML IV (23:56)
[2018-07-20] MEDS: LIDOCAINE/MYLANTA 40 ML BTL PO (23:57)
[2018-07-20] MEDS: BELLADONNA/PHENOBARBITAL TAB PO (23:57)
[2018-07-20 23:58] LABS: BASOPHIL # 0.2 10^3/ul (0.0-0.1); BASOPHILS % 2.1 % (0.0-2.0); EOSINOPHILS # 0.2 10^3/ul (0.0-0.5); EOSINOPHILS % 1.9 % (0.0-7.0); HEMATOCRIT 36.1 % (42.0-52.0); HEMOGLOBIN 11.3 g/dl (14.0-18.0); LYMPHOCYTES # 1.6 10^3/ul (0.8-2.9); LYMPHOCYTES % 13.7 % (15.0-51.0); MEAN CORPUSCULAR HEMOGLOBIN 29.5 pg (29.0-33.0); MEAN CORPUSCULAR HGB CONC 31.3 g/dl (32.0-37.0); MEAN CORPUSCULAR VOLUME 94.3 fl (82.0-101.0); MEAN PLATELET VOLUME 9.8 fl (7.4-10.4); MONOCYTE # 0.7 10^3/ul (0.3-0.9); MONOCYTES % 6.2 % (0.0-11.0); NEUTROPHIL # 8.1 10^3/ul (1.6-7.5); NEUTROPHILS % 71.5 % (39.0-77.0); NUCLEATED RED BLOOD CELLS% 0.3 /100WBC (0.0-0.0); PLATELET COUNT 266 10^3/UL (140-415); RED BLOOD COUNT 3.83 10^6/ul (4.70-6.10); RED CELL DISTRIBUTION WIDTH 16.7 % (11.5-14.5)
[2018-07-20 23:58] LABS: WHITE BLOOD COUNT 11.3 10^3/ul (4.8-10.8)
[2018-07-21 00:16] LABS: ALANINE AMINOTRANSFERASE 23 IU/L (13-69); ALBUMIN 4.3 g/dl (3.3-4.9); ALBUMIN/GLOBULIN RATIO 1.79; ALKALINE PHOSPHATASE 68 IU/L (42-121); ANION GAP 10 (5-13); ASPARTATE AMINO TRANSFERASE 24 IU/L (15-46); BILIRUBIN,INDIRECT 0.4 mg/dl (0-1.1); BILIRUBIN,TOTAL 0.4 mg/dl (0.2-1.3); BLOOD UREA NITROGEN 14 mg/dl (7-20); CALCIUM 8.9 mg/dl (8.4-10.2); CARBON DIOXIDE 25 mmol/L (21-31); CHLORIDE 101 mmol/L (97-110); CREATININE 1.06 mg/dl (0.61-1.24); Estimated GFR > 60 mL/min (>60); GLUCOSE 97 mg/dl (70-220); LIPASE 33 U/L (23-300); POTASSIUM 4.6 mmol/L (3.5-5.1); SODIUM 136 mmol/L (135-144); TOTAL PROTEIN 6.7 g/dl (6.1-8.1)
== END 2018-07-21 01:58 | disposition home or self-care (01) ==
LOC: E/R 21:49
DX: R10.30 Lower abdominal pain, unspecified (principal); I10 Essential (primary) hypertension; I25.10 Atherosclerotic heart disease of native coronary artery without angina pectoris; G89.4 Chronic pain syndrome; Z95.1 Presence of aortocoronary bypass graft
CPT/HCPCS: 36415; 80053; 83690; 85025; 93005; 96374; 99284-25

== ENCOUNTER 2018-07-29 11:59 | Inpatient (IN) | payer MEDICARE, OTHER ==
[2018-07-29] MEDS: SOD CHLORIDE 0.9% 500 ML IV (13:07)
[2018-07-29 14:00] LABS: ADD MAN DIFF? NO
[2018-07-29 14:04] LABS: ABNORMAL IP MESSAGE 1; BASOPHIL # 0.1 10^3/ul (0.0-0.1); BASOPHILS % 1.2 % (0.0-2.0); EOSINOPHILS # 0.1 10^3/ul (0.0-0.5); EOSINOPHILS % 1.1 % (0.0-7.0); HEMATOCRIT 22.2 % (42.0-52.0); LYMPHOCYTES # 0.7 10^3/ul (0.8-2.9); MEAN CORPUSCULAR HEMOGLOBIN 30.1 pg (29.0-33.0); MEAN CORPUSCULAR HGB CONC 31.1 g/dl (32.0-37.0); MEAN CORPUSCULAR VOLUME 96.9 fl (82.0-101.0); MEAN PLATELET VOLUME 12.6 fl (7.4-10.4); MONOCYTE # 0.5 10^3/ul (0.3-0.9); MONOCYTES % 5.4 % (0.0-11.0); NEUTROPHIL # 7.5 10^3/ul (1.6-7.5); NEUTROPHILS % 81.8 % (39.0-77.0); NUCLEATED RED BLOOD CELLS # 0.1 10^3/ul (0.0-0.0); PLATELET COUNT 174 10^3/UL (140-415); POSITIVE DIFF @See below; RED BLOOD COUNT 2.29 10^6/ul (4.70-6.10); RED CELL DISTRIBUTION WIDTH 16.8 % (11.5-14.5)
[2018-07-29 14:04] LABS: WHITE BLOOD COUNT 9.2 10^3/ul (4.8-10.8)
[2018-07-29 14:12] LABS: HEMOGLOBIN 6.9 g/dl (14.0-18.0); PATH REVIEW? YES
[2018-07-29 14:25] LABS: INR 1.64; PROTIME 19.5 Sec (11.9-14.9); PT RATIO 1.5
[2018-07-29 14:26] LABS: PARTIAL THROMBOPLASTIN TIME 50.5 Sec (23.0-35.0)
[2018-07-29 14:33] LABS: ALANINE AMINOTRANSFERASE 20 IU/L (13-69); ALBUMIN 2.9 g/dl (3.3-4.9); ALBUMIN/GLOBULIN RATIO 1.16; ALKALINE PHOSPHATASE 46 IU/L (42-121); ANION GAP 7 (5-13); ASPARTATE AMINO TRANSFERASE 18 IU/L (15-46); BILIRUBIN,INDIRECT 0.5 mg/dl (0-1.1); BILIRUBIN,TOTAL 0.5 mg/dl (0.2-1.3); BLOOD UREA NITROGEN 8 mg/dl (7-20); CALCIUM 6.6 mg/dl (8.4-10.2); CARBON DIOXIDE 18 mmol/L (21-31); CHLORIDE 111 mmol/L (97-110); CREATININE 0.74 mg/dl (0.61-1.24); Estimated GFR > 60 mL/min (>60); GLUCOSE 77 mg/dl (70-220); POTASSIUM 3.8 mmol/L (3.5-5.1); SODIUM 136 mmol/L (135-144); TOTAL PROTEIN 5.4 g/dl (6.1-8.1)
[2018-07-29 14:34] LABS: LIPASE < 10 U/L (23-300)
[2018-07-29 14:42] LABS: TROPONIN-I < 0.012 ng/ml (0.000-0.120)
[2018-07-29] MEDS ORDERED: ALBUTEROL/IPRATROPIUM (NEB) 3 ML AMP HHN (16:00)
[2018-07-29] MEDS ORDERED: LORAZEPAM 2 MG INJ IV (16:00)
[2018-07-29] MEDS ORDERED: NITROGLYCERIN (SL) 0.4 MG TAB SL (16:00)
[2018-07-29] MEDS ORDERED: ACETAMINOPHEN 325 MG TAB PO (16:00)
[2018-07-29] MEDS ORDERED: ONDANSETRON 4 MG INJ IV (16:00)
[2018-07-29] MEDS ORDERED: DOCUSATE SODIUM 100 MG CAP PO (16:00)
[2018-07-29] MEDS ORDERED: hydrALAzine 20 MG INJ IV (16:00)
[2018-07-29] MEDS ORDERED: NACL 0.9% 3 ML SYG IV (16:00)
[2018-07-29] MEDS ORDERED: MAGNESIUM HYDROXIDE 30ML CUP PO (16:00)
[2018-07-29 16:12] LABS: ADD UMIC YES; UR ASCORBIC ACID NEGATIVE (NEGATIVE); UR BILIRUBIN (Dip) NEGATIVE (NEGATIVE); UR BLOOD (Dip) 1+ mg/dL (NEGATIVE); UR CLARITY CLEAR (CLEAR); UR COLOR STRAW (YELLOW); UR GLUCOSE (Dip) NEGATIVE (NEGATIVE); UR KETONES (Dip) NEGATIVE (NEGATIVE); UR LEUKOCYTE ESTERASE (Dip) NEGATIVE Leu/ul (NEGATIVE); UR NITRITE (Dip) NEGATIVE (NEGATIVE); UR RBC 0 /HPF (0-5); UR SPECIFIC GRAVITY (Dip) 1.002 (1.003-1.030); UR TOTAL PROTEIN (Dip) NEGATIVE (NEGATIVE); UR UROBILINOGEN (Dip) NEGATIVE (NEGATIVE); UR WBC 0 /HPF (0-5)
[2018-07-29 16:16] LABS: FREE T4 (FREE THYROXINE) 0.99 ng/dl (0.78-2.44)
[2018-07-29] MEDS: SOD CHLORIDE 0.45% 1,000 ML IV (17:16)
[2018-07-29 18:57] LABS: HEMATOCRIT 33.8 % (42.0-52.0); HEMOGLOBIN 10.6 g/dl (14.0-18.0)
[2018-07-29] MEDS: TAMSULOSIN (SR) 0.4 MG CAP PO (20:23)
[2018-07-29] MEDS: METOPROLOL 50 MG TAB PO (20:23)
[2018-07-29 22:52] LABS: HEMATOCRIT 31.7 % (42.0-52.0); HEMOGLOBIN 10.1 g/dl (14.0-18.0)
[2018-07-29] MEDS: HYDROCODONE/APAP (5/325) TAB PO (23:34)
[2018-07-30] MEDS: SOD CHLORIDE 0.45% 1,000 ML IV (05:12)
[2018-07-30 06:17] LABS: WHITE BLOOD COUNT 10.7 10^3/ul (4.8-10.8)
[2018-07-30 06:17] LABS: HEMATOCRIT 32.3 % (42.0-52.0); HEMOGLOBIN 10.1 g/dl (14.0-18.0); MEAN CORPUSCULAR HEMOGLOBIN 29.7 pg (29.0-33.0); MEAN CORPUSCULAR HGB CONC 31.3 g/dl (32.0-37.0); MEAN PLATELET VOLUME 11.7 fl (7.4-10.4); PLATELET COUNT 207 10^3/UL (140-415); POSITIVE DIFF @See below; RED CELL DISTRIBUTION WIDTH 16.6 % (11.5-14.5)
[2018-07-30 06:23] LABS: HEMOGLOBIN A1C 5.4 % (0-5.9)
[2018-07-30 06:45] LABS: ANION GAP 10 (5-13); BLOOD UREA NITROGEN 10 mg/dl (7-20); CALCIUM 8.8 mg/dl (8.4-10.2); CARBON DIOXIDE 23 mmol/L (21-31); CHLORIDE 104 mmol/L (97-110); CREATININE 0.93 mg/dl (0.61-1.24); Estimated GFR > 60 mL/min (>60); GLUCOSE 88 mg/dl (70-220); MAGNESIUM 1.7 mg/dl (1.7-2.5); PHOSPHORUS 3.7 mg/dl (2.5-4.9); POTASSIUM 4.1 mmol/L (3.5-5.1); SODIUM 137 mmol/L (135-144)
[2018-07-30 06:47] LABS: CHOL/HDL RATIO 4.9 RATIO; HDL CHOLESTEROL 25 mg/dl (31-75); LDL CHOLESTEROL,CALCULATED 66 mg/dl; TRIGLYCERIDES 162 mg/dl (0-149)
[2018-07-30 06:47] LABS: CHOLESTEROL 123 mg/dl (100-200)
[2018-07-30 07:16] LABS: ADD MAN DIFF? YES
[2018-07-30] MEDS: morphine 2 MG INJ IV (07:36)
[2018-07-30] MEDS: PANTOPRAZOLE (EC) 40 MG TAB PO (08:44)
[2018-07-30] MEDS: METOPROLOL 50 MG TAB PO (08:48)
[2018-07-30 09:48] LABS: ANISOCYTOSIS 3+ (0-0); BAND NEUTROPHILS #M 0.4 10^3/ul (0.0-0.6); BAND NEUTROPHILS % (M) 4 % (0-4); BASOPHIL #M 0.1 10^3/ul (0.0-0.0); BASOPHILS % (M) 1 % (0-2); ELLIPTO 1+ (0-0); EOSINOPHILS % (M) 3 % (0-7); ERYTHROBLAST% (NRBC) (M) 2 % (0-0); GIANT THROMBO% (M) 1 % (0-0); LYMPHOCYTES #M 0.6 10^3/ul (0.8-2.9); LYMPHOCYTES % (M) 6 % (15-51); METAMYELOCYTES #M 0.1 10^3/ul (0.0-0.0); METAMYELOCYTES %M 1 % (0-0); MICROCYTOSIS 3+ (0-0); OVALOCYTES 2+ (0-0); PLATELET ESTIMATE NORMAL; POIKILOCYTOSIS 3+ (0-0); POLYCHROMASIA 2+ (0-0); SEG NEUT #M 9.1 10^3/ul (1.6-7.5); SEGMENTED NEUTROPHILS (M) % 85 % (39-77); SMUDGE%M 2 % (0-0); TEAR DROP CELLS 1+ (0-0)
[2018-07-30] MEDS: HYDROCODONE/APAP (5/325) TAB PO ×2 (10:29→17:24)
== END 2018-07-30 17:54 | disposition home or self-care (01) | DRG 552 ==
LOC: E/R 11:59 → TEL 15:15
DX: M54.5 Low back pain (principal); R53.1 Weakness; G89.29 Other chronic pain; I10 Essential (primary) hypertension; D46.9 Myelodysplastic syndrome, unspecified; I25.10 Atherosclerotic heart disease of native coronary artery without angina pectoris; Z95.1 Presence of aortocoronary bypass graft
CPT/HCPCS: 36415; 74176; 80048; 80053; 80061; 81001; 83036; 83690; 83735; 84100; 84439; 84443; 84484; 85014; 85018; 85025; 85610; 85730; 86850; 86900; 86901; 86920; 87086; 93005; 97161; 99285-25

== ENCOUNTER 2018-08-14 07:27 | Emergency (ER) | payer MEDICARE, OTHER ==
[2018-08-14 08:05] LABS: ADD MAN DIFF? NO
[2018-08-14 08:06] LABS: BASOPHIL # 0.2 10^3/ul (0.0-0.1); BASOPHILS % 2.2 % (0.0-2.0); EOSINOPHILS # 0.2 10^3/ul (0.0-0.5); EOSINOPHILS % 1.8 % (0.0-7.0); HEMOGLOBIN 12.2 g/dl (14.0-18.0); LYMPHOCYTES # 0.8 10^3/ul (0.8-2.9); LYMPHOCYTES % 7.6 % (15.0-51.0); MEAN CORPUSCULAR HEMOGLOBIN 29.8 pg (29.0-33.0); MEAN CORPUSCULAR HGB CONC 31.3 g/dl (32.0-37.0); MEAN CORPUSCULAR VOLUME 95.1 fl (82.0-101.0); MEAN PLATELET VOLUME 11.4 fl (7.4-10.4); MONOCYTE # 0.7 10^3/ul (0.3-0.9); MONOCYTES % 6.4 % (0.0-11.0); NEUTROPHIL # 8.4 10^3/ul (1.6-7.5); NEUTROPHILS % 78.1 % (39.0-77.0); NUCLEATED RED BLOOD CELLS # 0.2 10^3/ul (0.0-0.0); NUCLEATED RED BLOOD CELLS% 1.5 /100WBC (0.0-0.0); PLATELET COUNT 237 10^3/UL (140-415); RED CELL DISTRIBUTION WIDTH 18.5 % (11.5-14.5)
[2018-08-14 08:06] LABS: WHITE BLOOD COUNT 10.7 10^3/ul (4.8-10.8)
[2018-08-14 08:23] LABS: ALANINE AMINOTRANSFERASE 19 IU/L (13-69); ALBUMIN 4.5 g/dl (3.3-4.9); ALBUMIN/GLOBULIN RATIO 1.87; ALKALINE PHOSPHATASE 74 IU/L (42-121); ANION GAP 9 (5-13); ASPARTATE AMINO TRANSFERASE 21 IU/L (15-46); BILIRUBIN,INDIRECT 0.9 mg/dl (0-1.1); BILIRUBIN,TOTAL 0.9 mg/dl (0.2-1.3); BLOOD UREA NITROGEN 8 mg/dl (7-20); CALCIUM 8.9 mg/dl (8.4-10.2); CARBON DIOXIDE 27 mmol/L (21-31); CHLORIDE 97 mmol/L (97-110); CREATININE 0.99 mg/dl (0.61-1.24); Estimated GFR > 60 mL/min (>60); GLUCOSE 91 mg/dl (70-220); POTASSIUM 4.3 mmol/L (3.5-5.1); SODIUM 133 mmol/L (135-144); TOTAL PROTEIN 6.9 g/dl (6.1-8.1)
[2018-08-14 08:34] LABS: TROPONIN-I < 0.012 ng/ml (0.000-0.120)
[2018-08-14 08:36] LABS: PROTIME 14.3 Sec (11.9-14.9); PT RATIO 1.1
[2018-08-14 08:37] LABS: PARTIAL THROMBOPLASTIN TIME 40.6 Sec (23.0-35.0)
[2018-08-14] MEDS: ONDANSETRON 4 MG INJ IV (10:01)
== END 2018-08-14 10:26 | disposition home or self-care (01) ==
LOC: E/R 07:27
DX: D64.9 Anemia, unspecified (principal); Z95.1 Presence of aortocoronary bypass graft
CPT/HCPCS: 36415; 80053; 84484; 85025; 85610; 85730; 86850; 86900; 86901; 93005; 96374; 99284-25

== ENCOUNTER 2018-08-16 04:06 | Emergency (ER) | payer MEDICARE, OTHER ==
[2018-08-16] MEDS: ONDANSETRON 4 MG INJ IV ×2 (05:20→06:27)
[2018-08-16] MEDS: morphine 4 MG/ML VIAL IV (05:20)
[2018-08-16 05:28] LABS: ABNORMAL IP MESSAGE 1; HEMATOCRIT 40.2 % (42.0-52.0); HEMOGLOBIN 12.6 g/dl (14.0-18.0); MEAN CORPUSCULAR HEMOGLOBIN 29.5 pg (29.0-33.0); MEAN CORPUSCULAR HGB CONC 31.3 g/dl (32.0-37.0); MEAN CORPUSCULAR VOLUME 94.1 fl (82.0-101.0); MEAN PLATELET VOLUME 12.4 fl (7.4-10.4); NUCLEATED RED BLOOD CELLS% 1.4 /100WBC (0.0-0.0); PLATELET COUNT 307 10^3/UL (140-415); POSITIVE DIFF @See below; RED BLOOD COUNT 4.27 10^6/ul (4.70-6.10); RED CELL DISTRIBUTION WIDTH 18.2 % (11.5-14.5)
[2018-08-16 05:28] LABS: WHITE BLOOD COUNT 11.7 10^3/ul (4.8-10.8)
[2018-08-16 05:41] LABS: ADD MAN DIFF? YES
[2018-08-16 05:47] LABS: ALANINE AMINOTRANSFERASE 25 IU/L (13-69); ALBUMIN 4.6 g/dl (3.3-4.9); ALBUMIN/GLOBULIN RATIO 1.91; ALKALINE PHOSPHATASE 81 IU/L (42-121); ANION GAP 10 (5-13); ASPARTATE AMINO TRANSFERASE 31 IU/L (15-46); BLOOD UREA NITROGEN 9 mg/dl (7-20); CALCIUM 9.1 mg/dl (8.4-10.2); CARBON DIOXIDE 24 mmol/L (21-31); CHLORIDE 98 mmol/L (97-110); CREATININE 1.06 mg/dl (0.61-1.24); Estimated GFR > 60 mL/min (>60); GLUCOSE 100 mg/dl (70-220); POTASSIUM 4.3 mmol/L (3.5-5.1); SODIUM 132 mmol/L (135-144)
[2018-08-16 05:48] LABS: INR 1.12; PROTIME 14.5 Sec (11.9-14.9); PT RATIO 1.1
[2018-08-16 05:49] LABS: PARTIAL THROMBOPLASTIN TIME 38.4 Sec (23.0-35.0)
[2018-08-16 05:58] LABS: TROPONIN-I < 0.012 ng/ml (0.000-0.120)
[2018-08-16 06:19] LABS: ANISOCYTOSIS 1+ (0-0); BAND NEUTROPHILS #M 1.6 10^3/ul (0.0-0.6); BAND NEUTROPHILS % (M) 14 % (0-4); BASOPHIL #M 0.1 10^3/ul (0.0-0.0); BASOPHILS % (M) 1 % (0-2); EOSINOPHILS % (M) 2 % (0-7); ERYTHROBLAST% (NRBC) (M) 1 % (0-0); GIANT THROMBO% (M) 1 % (0-0); LYMPHOCYTES #M 0.1 10^3/ul (0.8-2.9); LYMPHOCYTES % (M) 1 % (15-51); METAMYELOCYTES #M 0.1 10^3/ul (0.0-0.0); METAMYELOCYTES %M 1 % (0-0); MICROCYTOSIS 1+ (0-0); MONOCYTE #M 0.2 10^3/ul (0.3-0.9); MONOCYTES % (M) 2 % (0-11); PLATELET ESTIMATE NORMAL; POIKILOCYTOSIS 2+ (0-0); POLYCHROMASIA 1+ (0-0); REACTIVE LYMPHOCYTES #M 0.2 10^3/ul (0.0-0.0); REACTIVE LYMPHOCYTES% (M) 2 % (0-0); SEG NEUT #M 9.2 10^3/ul (1.6-7.5); SEGMENTED NEUTROPHILS (M) % 77 % (39-77); SMUDGE%M 13 % (0-0); SPHEROCYTES 1+ (0-0)
[2018-08-16] MEDS: HYDROmorphONE 1 MG/ML SYG IV ×2 (06:34→08:47)
[2018-08-16] MEDS: DIAZEPAM 5 MG TAB PO (07:00)
[2018-08-16 13:26] LABS: PROSTATE SPECIFIC ANTIGEN 0.7 ng/ml (0.0-4.0)
== END 2018-08-16 10:00 | disposition home or self-care (01) ==
LOC: FTE 04:06 → E/R 10:00
DX: M54.5 Low back pain (principal); G89.3 Neoplasm related pain (acute) (chronic); C79.51 Secondary malignant neoplasm of bone; R10.9 Unspecified abdominal pain; Z95.1 Presence of aortocoronary bypass graft
CPT/HCPCS: 36415; 71045; 72128; 72131; 74176; 80053; 84153; 84154; 84484; 85025; 85610; 85730; 93005; 96374; 96375; 96376; 99285-25

== ENCOUNTER 2018-08-25 06:33 | Inpatient (IN) | payer MEDICARE, OTHER ==
[2018-08-25 07:26] LABS: ADD MAN DIFF? NO
[2018-08-25 07:29] LABS: BASOPHIL # 0.2 10^3/ul (0.0-0.1); BASOPHILS % 1.2 % (0.0-2.0); EOSINOPHILS # 0.5 10^3/ul (0.0-0.5); EOSINOPHILS % 3.1 % (0.0-7.0); HEMATOCRIT 37.9 % (42.0-52.0); HEMOGLOBIN 12.4 g/dl (14.0-18.0); LYMPHOCYTES # 1.2 10^3/ul (0.8-2.9); LYMPHOCYTES % 7.6 % (15.0-51.0); MEAN CORPUSCULAR HEMOGLOBIN 29.8 pg (29.0-33.0); MEAN CORPUSCULAR HGB CONC 32.7 g/dl (32.0-37.0); MEAN CORPUSCULAR VOLUME 91.1 fl (82.0-101.0); MEAN PLATELET VOLUME 10.9 fl (7.4-10.4); MONOCYTE # 0.6 10^3/ul (0.3-0.9); MONOCYTES % 3.9 % (0.0-11.0); NEUTROPHIL # 13.3 10^3/ul (1.6-7.5); NEUTROPHILS % 81.3 % (39.0-77.0); PLATELET COUNT 326 10^3/UL (140-415); RED BLOOD COUNT 4.16 10^6/ul (4.70-6.10)
[2018-08-25 07:29] LABS: WHITE BLOOD COUNT 16.4 10^3/ul (4.8-10.8)
[2018-08-25] MEDS: SOD CHLORIDE 0.9% 1,000 ML IV ×4 (07:39→23:21)
[2018-08-25 07:49] LABS: ALANINE AMINOTRANSFERASE 34 IU/L (13-69); ALBUMIN 4.1 g/dl (3.3-4.9); ALBUMIN/GLOBULIN RATIO 1.57; ALKALINE PHOSPHATASE 88 IU/L (42-121); ANION GAP 12 (5-13); ASPARTATE AMINO TRANSFERASE 24 IU/L (15-46); BILIRUBIN,INDIRECT 0.9 mg/dl (0-1.1); BILIRUBIN,TOTAL 0.9 mg/dl (0.2-1.3); BLOOD UREA NITROGEN 10 mg/dl (7-20); CALCIUM 8.8 mg/dl (8.4-10.2); CARBON DIOXIDE 21 mmol/L (21-31); CHLORIDE 94 mmol/L (97-110); CREATININE 0.94 mg/dl (0.61-1.24); Estimated GFR > 60 mL/min (>60); GLUCOSE 86 mg/dl (70-220); POTASSIUM 4.5 mmol/L (3.5-5.1); SODIUM 127 mmol/L (135-144); TOTAL PROTEIN 6.7 g/dl (6.1-8.1)
[2018-08-25] MEDS ORDERED: ONDANSETRON 4 MG INJ IV ×2 (08:00→08:30)
[2018-08-25] MEDS ORDERED: ACETAMINOPHEN 325 MG TAB PO ×2 (08:00→08:30)
[2018-08-25] MEDS ORDERED: morphine 10 MG INJ IV (08:00)
[2018-08-25] MEDS ORDERED: HYDROCODONE/APAP (5/325) TAB PO (08:30)
[2018-08-25] MEDS ORDERED: MAGNESIUM HYDROXIDE 30ML CUP PO (08:30)
[2018-08-25] MEDS ORDERED: DOCUSATE SODIUM 100 MG CAP PO (08:30)
[2018-08-25] MEDS ORDERED: NACL 0.9% 3 ML SYG IV (08:30)
[2018-08-25] MEDS ORDERED: DICYCLOMINE 10 MG CAP PO (08:30)
[2018-08-25] MEDS ORDERED: BISACODYL 10 MG SUPP PR (08:30)
[2018-08-25] MEDS ORDERED: ACETAMINOPHEN 650 MG SUPP PR (08:30)
[2018-08-25] MEDS ORDERED: RUXOLITINIB PHOSPHATE 20 MG XX (09:00)
[2018-08-25] MEDS: APIXABAN 5 MG TABLET PO ×2 (09:00→20:21)
[2018-08-25] MEDS: ALLOPURINOL 100 MG TAB PO ×3 (09:00→20:22)
[2018-08-25] MEDS: METOPROLOL 50 MG TAB PO ×2 (09:00→20:21)
[2018-08-25 09:09] LABS: ADD UMIC NO; UR ASCORBIC ACID NEGATIVE (NEGATIVE); UR BILIRUBIN (Dip) NEGATIVE (NEGATIVE); UR BLOOD (Dip) NEGATIVE (NEGATIVE); UR CLARITY CLEAR (CLEAR); UR COLOR YELLOW (YELLOW); UR GLUCOSE (Dip) NEGATIVE (NEGATIVE); UR KETONES (Dip) TRACE mg/dL (NEGATIVE); UR LEUKOCYTE ESTERASE (Dip) NEGATIVE Leu/ul (NEGATIVE); UR NITRITE (Dip) NEGATIVE (NEGATIVE); UR SPECIFIC GRAVITY (Dip) 1.008 (1.003-1.030); UR TOTAL PROTEIN (Dip) NEGATIVE (NEGATIVE); UR UROBILINOGEN (Dip) 1+ mg/dL (NEGATIVE)
[2018-08-25] MEDS: PANTOPRAZOLE (EC) 40 MG TAB PO (10:00)
[2018-08-25] MEDS: LACTULOSE 30ML CUP PO (10:33)
[2018-08-25] MEDS: DOCUSATE SODIUM 100 MG CAP PO ×3 (10:33→20:15)
[2018-08-25] MEDS: HYDROCODONE/APAP (5/325) TAB PO ×2 (16:56→23:30)
[2018-08-25] MEDS: TAMSULOSIN (SR) 0.4 MG CAP PO (20:21)
[2018-08-25 20:48] LABS: CARCINOEMBRYONIC ANTIGEN 2.2 ng/ml (0.0-5.0)
[2018-08-25 20:52] LABS: CANCER ANTIGEN 19-9 26.2 U/ml (0.0-37.0)
[2018-08-25 21:10] LABS: IMMUNOGLOBULIN A 117 mg/dl (70-400)
[2018-08-25 21:15] LABS: IMMUNOGLOBULIN G 558 mg/dl (700-1600); IMMUNOGLOBULIN M 27 mg/dl (40-230)
[2018-08-25] MEDS: morphine 2 MG INJ IV (21:31)
[2018-08-25 21:32] LABS: PROSTATE SPECIFIC ANTIGEN 0.7 ng/ml (0.0-4.0)
[2018-08-26] MEDS: PANTOPRAZOLE (EC) 40 MG TAB PO (05:33)
[2018-08-26 06:11] LABS: PROTEIN, TOTAL 6.1 g/dL (6.1-8.1)
[2018-08-26 06:39] LABS: ADD MAN DIFF? NO
[2018-08-26 06:43] LABS: WHITE BLOOD COUNT 12.9 10^3/ul (4.8-10.8)
[2018-08-26 06:43] LABS: BASOPHIL # 0.2 10^3/ul (0.0-0.1); BASOPHILS % 1.6 % (0.0-2.0); EOSINOPHILS # 0.4 10^3/ul (0.0-0.5); EOSINOPHILS % 3.1 % (0.0-7.0); HEMATOCRIT 35.6 % (42.0-52.0); HEMOGLOBIN 11.1 g/dl (14.0-18.0); LYMPHOCYTES # 0.9 10^3/ul (0.8-2.9); LYMPHOCYTES % 6.8 % (15.0-51.0); MEAN CORPUSCULAR HEMOGLOBIN 29.1 pg (29.0-33.0); MEAN CORPUSCULAR HGB CONC 31.2 g/dl (32.0-37.0); MEAN CORPUSCULAR VOLUME 93.2 fl (82.0-101.0); MEAN PLATELET VOLUME 12.1 fl (7.4-10.4); MONOCYTE # 0.6 10^3/ul (0.3-0.9); MONOCYTES % 4.9 % (0.0-11.0); NEUTROPHIL # 10.5 10^3/ul (1.6-7.5); NEUTROPHILS % 81.3 % (39.0-77.0); PLATELET COUNT 300 10^3/UL (140-415); RED BLOOD COUNT 3.82 10^6/ul (4.70-6.10); RED CELL DISTRIBUTION WIDTH 16.9 % (11.5-14.5)
[2018-08-26 07:30] LABS: FREE THYROXINE INDEX (Calc) 2.75 ug/ml (0.65-3.89); T3 UPTAKE 37.2 % (23.5-40.5); T4 (THYROXINE) 7.4 ug/dl (5.5-11.0)
[2018-08-26 07:54] LABS: ALANINE AMINOTRANSFERASE 28 IU/L (13-69); ALBUMIN 3.6 g/dl (3.3-4.9); ALKALINE PHOSPHATASE 78 IU/L (42-121); ANION GAP 9 (5-13); ASPARTATE AMINO TRANSFERASE 21 IU/L (15-46); BILIRUBIN,INDIRECT 0.7 mg/dl (0-1.1); BILIRUBIN,TOTAL 0.7 mg/dl (0.2-1.3); BLOOD UREA NITROGEN 8 mg/dl (7-20); CALCIUM 8.6 mg/dl (8.4-10.2); CARBON DIOXIDE 23 mmol/L (21-31); CHLORIDE 99 mmol/L (97-110); CHOLESTEROL 121 mg/dl (100-200); CREATININE 0.79 mg/dl (0.61-1.24); Estimated GFR > 60 mL/min (>60); GLUCOSE 73 mg/dl (70-220); HDL CHOLESTEROL 20 mg/dl (31-75); LDL CHOLESTEROL,CALCULATED 64 mg/dl; MAGNESIUM 1.7 mg/dl (1.7-2.5); POTASSIUM 4.6 mmol/L (3.5-5.1); SODIUM 131 mmol/L (135-144); TOTAL PROTEIN 5.6 g/dl (6.1-8.1); TRIGLYCERIDES 184 mg/dl (0-149)
[2018-08-26 08:54] LABS: HEMOGLOBIN A1C 4.9 % (0-5.9)
[2018-08-26] MEDS: APIXABAN 5 MG TABLET PO ×2 (08:58→21:04)
[2018-08-26] MEDS: DOCUSATE SODIUM 100 MG CAP PO ×3 (08:58→21:04)
[2018-08-26] MEDS: HYDROCODONE/APAP (5/325) TAB PO ×2 (08:58→09:47)
[2018-08-26] MEDS: ALLOPURINOL 100 MG TAB PO ×3 (09:00→22:16)
[2018-08-26] MEDS: METOPROLOL 50 MG TAB PO ×2 (09:00→22:15)
[2018-08-26] MEDS: morphine 2 MG INJ IV ×2 (11:10→19:33)
[2018-08-26] MEDS: SOD CHLORIDE 0.9% 1,000 ML IV (12:15)
[2018-08-26] MEDS ORDERED: HYDROmorphONE 1 MG/ML SYG (13:30)
[2018-08-26] MEDS: HYDROmorphONE 1 MG/ML SYG IV (13:45)
[2018-08-26] MEDS: FISH OIL 1,000 MG CAP PO (21:04)
[2018-08-26] MEDS: TAMSULOSIN (SR) 0.4 MG CAP PO (22:16)
[2018-08-26] MEDS: OXYCODONE/ACETAMINOPHEN (5/325) TAB PO (22:31)
[2018-08-27] MEDS: SOD CHLORIDE 0.9% 1,000 ML IV (01:18)
[2018-08-27] MEDS: PANTOPRAZOLE (EC) 40 MG TAB PO (05:12)
[2018-08-27] MEDS: morphine 2 MG INJ IV (08:43)
[2018-08-27] MEDS: FISH OIL 1,000 MG CAP PO ×2 (08:44→21:21)
[2018-08-27] MEDS: APIXABAN 5 MG TABLET PO ×2 (08:45→21:20)
[2018-08-27] MEDS: METOPROLOL 50 MG TAB PO ×2 (08:45→22:09)
[2018-08-27] MEDS: ALLOPURINOL 100 MG TAB PO ×3 (08:46→22:08)
[2018-08-27] MEDS: DOCUSATE SODIUM 100 MG CAP PO ×3 (08:46→22:08)
[2018-08-27] MEDS: SENNA TAB PO (21:00)
[2018-08-27] MEDS: TAMSULOSIN (SR) 0.4 MG CAP PO (21:20)
[2018-08-27] MEDS: HYDROCODONE/APAP (5/325) TAB PO (22:22)
[2018-08-28] MEDS: PANTOPRAZOLE (EC) 40 MG TAB PO (05:40)
[2018-08-28] MEDS: METOPROLOL 50 MG TAB PO (09:00)
[2018-08-28] MEDS: ALLOPURINOL 100 MG TAB PO ×2 (09:07→13:00)
[2018-08-28] MEDS: APIXABAN 5 MG TABLET PO (09:07)
[2018-08-28] MEDS: FISH OIL 1,000 MG CAP PO (09:07)
[2018-08-28] MEDS: SENNA TAB PO (09:07)
[2018-08-28] MEDS: DOCUSATE SODIUM 100 MG CAP PO ×2 (09:07→13:00)
[2018-08-28 23:38] LABS: ALBUMIN 4.1 g/dL (3.8-4.8); ALPHA-1-GLOBULINS 0.4 g/dL (0.2-0.3); ALPHA-2-GLOBULINS 0.6 g/dL (0.5-0.9); BETA 2 GLOBULINS 0.2 g/dL (0.2-0.5); BETA GLOBULINS 0.3 g/dL (0.4-0.6); GAMMA GLOBULINS 0.6 g/dL (0.8-1.7)
== END 2018-08-28 12:50 | disposition home or self-care (01) | DRG 552 ==
LOC: E/R 06:33 → PP2 07:56
DX: M54.5 Low back pain (principal); C94.6 Myelodysplastic disease, not elsewhere classified; D45 Polycythemia vera; R16.1 Splenomegaly, not elsewhere classified; I10 Essential (primary) hypertension; N40.0 Benign prostatic hyperplasia without lower urinary tract symptoms; K59.00 Constipation, unspecified; Z95.1 Presence of aortocoronary bypass graft; E78.5 Hyperlipidemia, unspecified; Z91.14 Patient's other noncompliance with medication regimen; C80.1 Malignant (primary) neoplasm, unspecified; M89.9 Disorder of bone, unspecified
CPT/HCPCS: 36415; 71250; 78306; 80053; 80061; 80307; 81003; 82378; 82570; 82784; 83036; 83735; 84100; 84153; 84154; 84155; 84156; 84165; 84166; 84436; 84443; 84479; 85025; 86301; 86320; 97161; 97167; 97168; 99285-25; A9503; G0378

== ENCOUNTER 2018-08-29 19:19 | Inpatient (IN) | payer MEDICARE, OTHER ==
[2018-08-29] MEDS: HYDROmorphONE 1 MG/ML SYG IV (19:40)
[2018-08-29] MEDS: ONDANSETRON 4 MG INJ IV (19:41)
[2018-08-29 20:44] LABS: WHITE BLOOD COUNT 21.5 10^3/ul (4.8-10.8)
[2018-08-29 20:44] LABS: HEMATOCRIT 38.9 % (42.0-52.0); HEMOGLOBIN 12.2 g/dl (14.0-18.0); MEAN CORPUSCULAR HEMOGLOBIN 29.3 pg (29.0-33.0); MEAN CORPUSCULAR HGB CONC 31.4 g/dl (32.0-37.0); MEAN CORPUSCULAR VOLUME 93.3 fl (82.0-101.0); MEAN PLATELET VOLUME 11.5 fl (7.4-10.4); NUCLEATED RED BLOOD CELLS% 0.3 /100WBC (0.0-0.0); PLATELET COUNT 722 10^3/UL (140-415); POSITIVE DIFF @See below; RED BLOOD COUNT 4.17 10^6/ul (4.70-6.10); RED CELL DISTRIBUTION WIDTH 17.2 % (11.5-14.5)
[2018-08-29 20:48] LABS: ADD MAN DIFF? YES; PATH REVIEW? YES
[2018-08-29 20:50] LABS: ALANINE AMINOTRANSFERASE 70 IU/L (13-69); ALBUMIN 4.1 g/dl (3.3-4.9); ALBUMIN/GLOBULIN RATIO 1.86; ALKALINE PHOSPHATASE 91 IU/L (42-121); ANION GAP 15 (5-13); ASPARTATE AMINO TRANSFERASE 88 IU/L (15-46); BILIRUBIN,INDIRECT 0.7 mg/dl (0-1.1); BILIRUBIN,TOTAL 0.7 mg/dl (0.2-1.3); BLOOD UREA NITROGEN 8 mg/dl (7-20); CALCIUM 8.7 mg/dl (8.4-10.2); CARBON DIOXIDE 21 mmol/L (21-31); CHLORIDE 93 mmol/L (97-110); CREATININE 1.22 mg/dl (0.61-1.24); Estimated GFR 59 mL/min (>60); GLUCOSE 174 mg/dl (70-220); LIPASE 136 U/L (23-300); POTASSIUM 3.7 mmol/L (3.5-5.1); SODIUM 129 mmol/L (135-144); TOTAL PROTEIN 6.3 g/dl (6.1-8.1)
[2018-08-29 20:57] LABS: URINE BLOOD (Dip) POC 2+ (NEGATIVE); URINE GLUCOSE (Dip) POC Negative (NEGATIVE); URINE KETONES (Dip) POC Negative (NEGATIVE); URINE LEUKOCYTE EST (Dip) POC Negative (NEGATIVE); URINE NITRITE (Dip) POC Negative (NEGATIVE); URINE TOTAL PROTEIN POC 1+ (NEGATIVE)
[2018-08-29 20:57] LABS: URINE PH (Dip) POC 5.5 (5.0-8.5)
[2018-08-29] MEDS: PIPER-TAZO 3.375 GM IV (PMX) 100 ML IVPB (22:06)
[2018-08-29 22:27] LABS: ANISOCYTOSIS 1+ (0-0); BAND NEUTROPHILS #M 0.8 10^3/ul (0.0-0.6); BAND NEUTROPHILS % (M) 4 % (0-4); BASOPHIL #M 0.4 10^3/ul (0.0-0.0); BASOPHILS % (M) 2 % (0-2); EOSINOPHILS % (M) 3 % (0-7); GIANT THROMBO% (M) 1 % (0-0); LYMPHOCYTES #M 0.8 10^3/ul (0.8-2.9); LYMPHOCYTES % (M) 4 % (15-51); MICROCYTOSIS 1+ (0-0); MONOCYTE #M 0.8 10^3/ul (0.3-0.9); MONOCYTES % (M) 4 % (0-11); MYELOCYTES #M 0.2 10^3/ul (0.0-0.0); MYELOCYTES % (M) 1 % (0-0); OVALOCYTES 2+ (0-0); POIKILOCYTOSIS 3+ (0-0); REACTIVE LYMPHOCYTES #M 0.6 10^3/ul (0.0-0.0); REACTIVE LYMPHOCYTES% (M) 3 % (0-0); SCHISTOCYTES 1+ (0-0); SEG NEUT #M 16.9 10^3/ul (1.6-7.5); SEGMENTED NEUTROPHILS (M) % 78 % (39-77); SMUDGE%M 27 % (0-0); TEAR DROP CELLS 1+ (0-0)
[2018-08-29] MEDS ORDERED: NON-FORMULARY/PATIENT OWN MED (Naloxone HCl nasal spray (Narcan 4 mg/0.1 mL nasal) 4 MG) NS (23:30)
[2018-08-29] MEDS ORDERED: NITROGLYCERIN (SL) 0.4 MG TAB SL (23:30)
[2018-08-29] MEDS ORDERED: DICYCLOMINE 10 MG CAP PO (23:30)
[2018-08-30] MEDS: HYDROmorphONE 1 MG/ML SYG IV (00:14)
[2018-08-30] MEDS: ONDANSETRON 4 MG INJ IV (00:47)
[2018-08-30 01:06] LABS: C-REACTIVE PROTEIN 0.6 mg/dl (0.0-0.9)
[2018-08-30 01:36] LABS: ERYTHROCYTE SEDIMENTATION RATE 1 mm/Hr (0-20)
[2018-08-30] MEDS: METOPROLOL 50 MG TAB PO ×4 (02:21→21:00)
[2018-08-30] MEDS: SOD CHLORIDE 0.9% 1,000 ML IV ×3 (02:22→17:24)
[2018-08-30 03:58] LABS: ADD MAN DIFF? NO
[2018-08-30 04:15] LABS: BASOPHIL # 0.2 10^3/ul (0.0-0.1); BASOPHILS % 1.3 % (0.0-2.0); EOSINOPHILS # 0.3 10^3/ul (0.0-0.5); EOSINOPHILS % 1.8 % (0.0-7.0); HEMATOCRIT 36.7 % (42.0-52.0); HEMOGLOBIN 11.5 g/dl (14.0-18.0); LYMPHOCYTES # 0.9 10^3/ul (0.8-2.9); LYMPHOCYTES % 5.7 % (15.0-51.0); MEAN CORPUSCULAR HGB CONC 31.3 g/dl (32.0-37.0); MEAN CORPUSCULAR VOLUME 92.7 fl (82.0-101.0); MEAN PLATELET VOLUME 11.4 fl (7.4-10.4); MONOCYTE # 0.8 10^3/ul (0.3-0.9); MONOCYTES % 4.8 % (0.0-11.0); NEUTROPHIL # 13.3 10^3/ul (1.6-7.5); NEUTROPHILS % 83.8 % (39.0-77.0); NUCLEATED RED BLOOD CELLS% 0.1 /100WBC (0.0-0.0); PLATELET COUNT 427 10^3/UL (140-415); RED BLOOD COUNT 3.96 10^6/ul (4.70-6.10); RED CELL DISTRIBUTION WIDTH 16.7 % (11.5-14.5)
[2018-08-30 04:15] LABS: WHITE BLOOD COUNT 15.9 10^3/ul (4.8-10.8)
[2018-08-30 04:24] LABS: ALANINE AMINOTRANSFERASE 353 IU/L (13-69); ALBUMIN 3.7 g/dl (3.3-4.9); ALBUMIN/GLOBULIN RATIO 1.76; ALKALINE PHOSPHATASE 76 IU/L (42-121); ANION GAP 11 (5-13); ASPARTATE AMINO TRANSFERASE 234 IU/L (15-46); BILIRUBIN,INDIRECT 0.9 mg/dl (0-1.1); BILIRUBIN,TOTAL 0.9 mg/dl (0.2-1.3); BLOOD UREA NITROGEN 9 mg/dl (7-20); CALCIUM 8.7 mg/dl (8.4-10.2); CARBON DIOXIDE 22 mmol/L (21-31); CHLORIDE 95 mmol/L (97-110); CREATININE 1.01 mg/dl (0.61-1.24); Estimated GFR > 60 mL/min (>60); GLUCOSE 100 mg/dl (70-220); MAGNESIUM 1.5 mg/dl (1.7-2.5); POTASSIUM 4.3 mmol/L (3.5-5.1); SODIUM 128 mmol/L (135-144); TOTAL PROTEIN 5.8 g/dl (6.1-8.1)
[2018-08-30] MEDS: OXYCODONE/ACETAMINOPHEN (5/325) TAB PO ×4 (06:00→18:00)
[2018-08-30] MEDS: PANTOPRAZOLE (EC) 40 MG TAB PO (06:34)
[2018-08-30] MEDS: ALLOPURINOL 100 MG TAB PO ×4 (09:00→21:00)
[2018-08-30] MEDS: DOCUSATE SODIUM 100 MG CAP PO ×3 (09:00→20:53)
[2018-08-30] MEDS ORDERED: NON-FORMULARY/PATIENT OWN MED (Omeprazole* 20 MG) PO (09:00)
[2018-08-30] MEDS: SENNA TAB PO ×2 (09:00→20:53)
[2018-08-30] MEDS ORDERED: RUXOLITINIB PHOSPHATE 20 MG PO (09:00)
[2018-08-30] MEDS ORDERED: HYDROCODONE/APAP (5/325) TAB PO (09:00)
[2018-08-30] MEDS: FISH OIL 1,000 MG CAP PO ×2 (09:49→20:53)
[2018-08-30] MEDS: APIXABAN 5 MG TABLET PO ×2 (09:49→20:53)
[2018-08-30] MEDS: MAGNESIUM SULFATE 2 GM/50 ML 50 ML IVPB (09:50)
[2018-08-30 13:53] LABS: CARCINOEMBRYONIC ANTIGEN 2.7 ng/ml (0.0-5.0)
[2018-08-30 14:03] LABS: ADD UMIC YES; UR ASCORBIC ACID NEGATIVE (NEGATIVE); UR BILIRUBIN (Dip) NEGATIVE (NEGATIVE); UR BLOOD (Dip) 1+ mg/dL (NEGATIVE); UR CLARITY CLEAR (CLEAR); UR COLOR YELLOW (YELLOW); UR GLUCOSE (Dip) NEGATIVE (NEGATIVE); UR KETONES (Dip) NEGATIVE (NEGATIVE); UR LEUKOCYTE ESTERASE (Dip) NEGATIVE Leu/ul (NEGATIVE); UR NITRITE (Dip) NEGATIVE (NEGATIVE); UR RBC 1 /HPF (0-5); UR SPECIFIC GRAVITY (Dip) 1.016 (1.003-1.030); UR TOTAL PROTEIN (Dip) NEGATIVE (NEGATIVE); UR UROBILINOGEN (Dip) 1+ mg/dL (NEGATIVE); UR WBC 4 /HPF (0-5)
[2018-08-30 18:06] LABS: HEPATITIS B SURFACE ANTIGEN NEGATIVE (NEGATIVE)
[2018-08-30 18:23] LABS: HEPATITIS C VIRAL ANTIBODY NEGATIVE (NEGATIVE)
[2018-08-30 19:14] LABS: HEPATITIS B SURFACE ANTIBODY NEGATIVE (NEGATIVE)
[2018-08-30] MEDS ORDERED: PROPOFOL 20 ML (19:50)
[2018-08-30] MEDS: TAMSULOSIN (SR) 0.4 MG CAP PO ×2 (20:53→21:00)
[2018-08-30] MEDS: SUCRALFATE (100 MG/ML) 10ML CUP PO (21:58)
[2018-08-31] MEDS: ONDANSETRON 4 MG INJ IV (00:36)
[2018-08-31] MEDS: PANTOPRAZOLE (EC) 40 MG TAB PO (04:59)
[2018-08-31] MEDS: OXYCODONE/ACETAMINOPHEN (5/325) TAB PO ×3 (05:01→11:03)
[2018-08-31 05:37] LABS: ADD MAN DIFF? NO
[2018-08-31 05:42] LABS: WHITE BLOOD COUNT 21.1 10^3/ul (4.8-10.8)
[2018-08-31 05:42] LABS: BASOPHIL # 0.2 10^3/ul (0.0-0.1); BASOPHILS % 1.1 % (0.0-2.0); EOSINOPHILS # 0.3 10^3/ul (0.0-0.5); EOSINOPHILS % 1.4 % (0.0-7.0); HEMATOCRIT 36.8 % (42.0-52.0); HEMOGLOBIN 11.6 g/dl (14.0-18.0); LYMPHOCYTES # 0.8 10^3/ul (0.8-2.9); LYMPHOCYTES % 3.6 % (15.0-51.0); MEAN CORPUSCULAR HEMOGLOBIN 29.1 pg (29.0-33.0); MEAN CORPUSCULAR HGB CONC 31.5 g/dl (32.0-37.0); MEAN CORPUSCULAR VOLUME 92.2 fl (82.0-101.0); MEAN PLATELET VOLUME 10.9 fl (7.4-10.4); MONOCYTE # 0.8 10^3/ul (0.3-0.9); MONOCYTES % 3.9 % (0.0-11.0); NEUTROPHIL # 18.5 10^3/ul (1.6-7.5); NEUTROPHILS % 87.8 % (39.0-77.0); NUCLEATED RED BLOOD CELLS% 0.1 /100WBC (0.0-0.0); PLATELET COUNT 365 10^3/UL (140-415); RED BLOOD COUNT 3.99 10^6/ul (4.70-6.10); RED CELL DISTRIBUTION WIDTH 17.2 % (11.5-14.5)
[2018-08-31 06:13] LABS: ALANINE AMINOTRANSFERASE 711 IU/L (13-69); ALBUMIN 3.6 g/dl (3.3-4.9); ALKALINE PHOSPHATASE 95 IU/L (42-121); ANION GAP 10 (5-13); ASPARTATE AMINO TRANSFERASE 399 IU/L (15-46); BILIRUBIN,INDIRECT 0.9 mg/dl (0-1.1); BILIRUBIN,TOTAL 0.9 mg/dl (0.2-1.3); BLOOD UREA NITROGEN 11 mg/dl (7-20); CALCIUM 8.6 mg/dl (8.4-10.2); CARBON DIOXIDE 22 mmol/L (21-31); CHLORIDE 100 mmol/L (97-110); CREATININE 0.82 mg/dl (0.61-1.24); Estimated GFR > 60 mL/min (>60); GLUCOSE 88 mg/dl (70-220); POTASSIUM 4.3 mmol/L (3.5-5.1); SODIUM 132 mmol/L (135-144); TOTAL PROTEIN 5.6 g/dl (6.1-8.1)
[2018-08-31] MEDS: DOCUSATE SODIUM 100 MG CAP PO (08:53)
[2018-08-31] MEDS: APIXABAN 5 MG TABLET PO (08:53)
[2018-08-31] MEDS: FISH OIL 1,000 MG CAP PO (08:53)
[2018-08-31] MEDS: SENNA TAB PO (08:53)
[2018-08-31] MEDS: SUCRALFATE (100 MG/ML) 10ML CUP PO (08:54)
[2018-08-31] MEDS: METOPROLOL 50 MG TAB PO (08:57)
[2018-08-31] MEDS: ALLOPURINOL 100 MG TAB PO (08:57)
== END 2018-08-31 11:35 | disposition home or self-care (01) | DRG 392 ==
LOC: PP2 23:18 → E/R 19:19 → PP2 08-30 01:34
PROC: 0DB68ZX Excision of Stomach, Via Natural or Artificial Opening Endoscopic, Diagnostic (ICD-10-PCS; principal; 2018-08-30 18:15)
DX: K29.70 Gastritis, unspecified, without bleeding (principal); C94.6 Myelodysplastic disease, not elsewhere classified; N40.0 Benign prostatic hyperplasia without lower urinary tract symptoms; I10 Essential (primary) hypertension; D45 Polycythemia vera; I25.10 Atherosclerotic heart disease of native coronary artery without angina pectoris; G89.29 Other chronic pain; D64.9 Anemia, unspecified; F41.9 Anxiety disorder, unspecified; R16.1 Splenomegaly, not elsewhere classified; K59.09 Other constipation; E78.5 Hyperlipidemia, unspecified; K20.9 Esophagitis, unspecified; M54.5 Low back pain; F32.9 Major depressive disorder, single episode, unspecified; Z95.1 Presence of aortocoronary bypass graft
CPT/HCPCS: 36415; 71045; 74176; 80053; 81001; 81003; 82378; 83690; 83735; 85025; 85651; 86140; 86706; 86709; 86803; 87040-91; 87086; 87340; 88305; 88312; 96374; 96375; 99285-25

== ENCOUNTER 2018-09-06 09:09 | Emergency (ER) | payer MEDICARE, OTHER ==
[2018-09-06] MEDS: OXYCODONE/ACETAMINOPHEN (5/325) TAB PO (10:29)
[2018-09-06] MEDS: KETOROLAC 30 MG INJ IM (10:30)
== END 2018-09-06 10:53 | disposition home or self-care (01) ==
LOC: FTE 10:53
DX: I25.10 Atherosclerotic heart disease of native coronary artery without angina pectoris (principal); Z85.9 Personal history of malignant neoplasm, unspecified
CPT/HCPCS: 96372; 99284-25